=== PATIENT | male | born 1945 | race Two or more races ===

== ENCOUNTER 2020-04-06 20:22 | Inpatient (IN) | payer OTHER ==
[~2020-04-06] VITALS: Ht 167.6 cm; Wt 63.1 kg
[2020-04-07 00:09] LABS: Basophils # (auto) 0 10 ^3/uL (0-0.2); Basophils % (auto) 0.3 % (0.0-2.0); Eosinophils # (auto) 0.3 10 ^3/uL (0-0.8); Eosinophils % (auto) 4.2 % (0.0-7.0); Hemoglobin 9.1 g/dL (13.5-17.5); Lymphocytes # (auto) 3.2 10 ^3/uL (0.4-5.4); Lymphocytes % (auto) 38.7 % (10.0-50.0); Mean Corpuscular Hemoglobin 31.3 pg (28.0-32.0); Mean Corpuscular Volume 89.7 fL (80.0-100.0); Monocytes # (auto) 0.6 10 ^3/uL (0-1.3); Monocytes % (auto) 7.2 % (0.0-12.0); Neutrophils # (auto) 4.1 10 ^3/uL (1.6-8.6); Neutrophils % (auto) 49.6 % (37.0-80.0); Platelet Count (auto) 330 10^3/uL (140-450); Red Cell Distribution Width 13.8 % (11.8-14.3); White Blood Cell 8.3 10^3/uL (4.4-10.8)
[2020-04-07 00:25] LABS: INR 0.98 (0.9-1.15); Partial Thromboplastin Time 23.4 sec (23.0-31.2)
[2020-04-07 00:31] LABS: BUN/Creatinine Ratio 9.3; Calcium 9.5 mg/dL (8.5-10.1); Potassium 3.1 mmol/L (3.5-5.1)
[2020-04-07 00:34] LABS: Bilirubin, Total 0.5 mg/dL (0.2-1.0); Total Protein 8.1 g/dL (6.4-8.2)
[2020-04-07] MEDS ORDERED: ENOXAPARIN SOD 60 MG/0.6 ML SYRINGE SC ONE (03:15)
[2020-04-07] MEDS ORDERED: SODIUM CHLORIDE 0.9% 1,000 ML IV SCH (04:31)
[2020-04-07] MEDS ORDERED: DEXTROSE (50%) 50ML SYRG IV PRN (04:45)
[2020-04-07] MEDS ORDERED: DOCUSATE SOD 100 MG CAP PO PRN (04:45)
[2020-04-07] MEDS ORDERED: HYDROcodone-ACET 5/325MG TAB PO PRN (04:45)
[2020-04-07] MEDS ORDERED: ACETAMINOPHEN 325 MG TAB PO PRN (04:45)
[2020-04-07] MEDS ORDERED: ONDANSETRON HCL 4 MG/2 ML VIAL IV PRN (04:45)
--- NOTE | 2020-04-07 07:31 | NUR ---
MS admit from [facility] admitted to tele/MS after SBAR received. Patient oriented to naa STEVE RN, unit, room, bed, and unit policies regarding patient care and visiting hours. Patient weighed by bed scale and encouraged to call if they need something. Patient Yoruba speaking. Call soria placed within reach, bed in low position. Addendum: 04/07/20 at 0751 by GENOVEVA MARK RN Patient has generalized skin discoloration (large white spots). Left buttocks lesion.
[2020-04-07 08:00] VITALS: BP 128/75
[2020-04-07] MEDS: ACCU-CHEK COMFORT CURVE STRIP VI SCH ×3 (08:00→16:00)
[2020-04-07] MEDS: InsuLIN REG 1unit/0.01ml Soln (100units/ml) SC SCH ×3 (08:00→16:00)
--- NOTE | 2020-04-07 08:00 | NUR ---
Opening Shift Note Assumed care of patient, awake and alertx4. No S/S of distress/SOB or pain. Instructed on POC and to call for assist PRN. Bed at lowest locked position and call light within reach. Will continue to monitor for changes Q1hr and PRN.
[2020-04-07 09:00] VITALS: BP 128/75
[2020-04-07 11:51] LABS: Basophils # (auto) 0 10 ^3/uL (0-0.2); Basophils % (auto) 0.5 % (0.0-2.0); Eosinophils # (auto) 0.2 10 ^3/uL (0-0.8); Eosinophils % (auto) 3.6 % (0.0-7.0); Hematocrit 27.6 % (41.0-53.0); Hemoglobin 9.6 g/dL (13.5-17.5); Lymphocytes # (auto) 2.1 10 ^3/uL (0.4-5.4); Mean Corpuscular Hemoglobin 31.1 pg (28.0-32.0); Mean Corpuscular Hgb Conc. 34.8 g/dL (32.0-36.0); Mean Corpuscular Volume 89.6 fL (80.0-100.0); Monocytes # (auto) 0.4 10 ^3/uL (0-1.3); Monocytes % (auto) 6.1 % (0.0-12.0); Neutrophils # (auto) 3.3 10 ^3/uL (1.6-8.6); Neutrophils % (auto) 54.8 % (37.0-80.0); Platelet Count (auto) 357 10^3/uL (140-450); Red Blood Cells 3.08 10^6/uL (4.5-5.90); Red Cell Distribution Width 13.6 % (11.8-14.3)
[2020-04-07 12:05] LABS: Calcium 9.8 mg/dL (8.5-10.1)
[2020-04-07 12:07] LABS: BUN/Creatinine Ratio 9.8
[2020-04-07 13:00] VITALS: BP 123/76
--- NOTE | 2020-04-07 13:30 | NUR ---
DR. HAM AT BEDSIDE.
[2020-04-07] MEDS: POTASSIUM CHL 20 Meq TABLET PO SCH ×2 (14:45→17:38)
[2020-04-07 15:22] VITALS: BP 123/76
--- NOTE | 2020-04-07 16:00 | NUR ---
called patient's KWAMEK Марина to inform her of discharge. per Daughter Марина, ETA is [phone].
--- NOTE | 2020-04-07 16:49 | NUR ---
MRSA screen MRSA swab collected and sent to lab via [facility] system.
[2020-04-07] MEDS ORDERED: ENOXAPARIN SOD 60 MG/0.6 ML SYRINGE SC SCH (18:00)
--- NOTE | 2020-04-07 18:04 | NUR ---
Discharge instructions given as ordered. Encourage to follow up with PMD as instructed. All questions and concerns addressed. Patient verbalized understanding. Medication reconciliation form completed and copy given to patient. IV removed with catheter intact, pressure dressing applied. Patient ambulated to vehicle via with all personal belongings, accompanied by this nurse a. No distress noted at time of departure.
== END 2020-04-07 18:05 | disposition home or self-care (01) | DRG 299 ==
LOC: ER 20:22 → OVERFLOW 20:23 → WEST WING 04-07 06:59
PROVIDERS: ADMIT Hospitalist; ATTEND Hospitalist
DX: I82.432 Acute embolism and thrombosis of left popliteal vein (principal); N17.0 Acute kidney failure with tubular necrosis; E87.1 Hypo-osmolality and hyponatremia; E11.22 Type 2 diabetes mellitus with diabetic chronic kidney disease; E87.6 Hypokalemia; I12.9 Hypertensive chronic kidney disease with stage 1 through stage 4 chronic kidney disease, or unspecified chronic kidney disease; N18.3 Chronic kidney disease, stage 3 (moderate); D63.8 Anemia in other chronic diseases classified elsewhere; E11.65 Type 2 diabetes mellitus with hyperglycemia; Z86.718 Personal history of other venous thrombosis and embolism
CPT/HCPCS: 36415; 80048; 80053; 82962; 83036; 85025; 85379; 85610; 85730; 87081; 93971; G0378; J1815

== ENCOUNTER 2023-12-03 11:21 | Inpatient (IN) | payer OTHER ==
[2023-12-03] VITALS (8 sets, daily range): BP systolic 103–156; BP diastolic 80–87; PULSE 60–90; RESP 16–18; TEMP 97.3–99; O2SAT 92–97
[~2023-12-03] VITALS: Ht 172.7 cm; Wt 60.2 kg
[2023-12-03 12:10] LABS: Basophils # (auto) 0 10 ^3/uL (0-0.2); Basophils % (auto) 0.2 % (0.0-2.0); Eosinophils # (auto) 0.2 10 ^3/uL (0-0.8); Eosinophils % (auto) 2.1 % (0.0-7.0); Hematocrit 38.4 % (41.0-53.0); Hemoglobin 12.8 g/dL (13.5-17.5); Lymphocytes # (auto) 1.5 10 ^3/uL (0.4-5.4); Lymphocytes % (auto) 20.5 % (10.0-50.0); Mean Corpuscular Hemoglobin 29.1 pg (28.0-32.0); Mean Corpuscular Hgb Conc. 33.3 g/dL (32.0-36.0); Mean Corpuscular Volume 87.4 fL (80.0-100.0); Monocytes # (auto) 0.3 10 ^3/uL (0-1.3); Monocytes % (auto) 3.4 % (0.0-12.0); Neutrophils # (auto) 5.5 10 ^3/uL (1.6-8.6); Neutrophils % (auto) 73.8 % (37.0-80.0); Nucleated Red Blood Cells % 0.1 %; Red Cell Distribution Width 14.2 % (11.8-14.3); White Blood Cell 7.5 10^3/uL (4.4-10.8)
[2023-12-03 12:28] LABS: Alanine Aminotransferase 16 U/L (7-40); Albumin 4.2 g/dL (3.2-4.8); Alkaline Phosphatase 108 U/L (46-116); Anion Gap 8 (5-15); Aspartate Aminotransferase 14 U/L (13-40); BUN/Creatinine Ratio 21.4 (10.0-20.0); Blood Urea Nitrogen 37 mg/dL (9-23); Calcium 10.3 mg/dL (8.5-10.1); Carbon Dioxide 26 mmol/L (20-30); Chloride 99 mmol/L (98-107); Potassium 4.9 mmol/L (3.5-5.1); Sodium 133 mmol/L (136-145)
[2023-12-03 12:29] LABS: Bilirubin, Total 0.6 mg/dL (0.2-1.0); Total Protein 7.3 g/dL (5.7-8.2)
[2023-12-03 12:34] LABS: Glucose 491 mg/dL (74-106)
[2023-12-03] MEDS: SODIUM CHLORIDE 0.9% 1,000 ML IV ONE (12:39)
[2023-12-03] MEDS: InsuLIN REG 1unit/0.01ml Soln (100units/ml) IV ONE (13:19)
[2023-12-03] MEDS ORDERED: DEXTROSE (50%) 50ML SYRG IV PRN (13:45)
[2023-12-03] MEDS: SODIUM CHLORIDE 0.9% 1,000 ML IV SCH (13:54)
[2023-12-03 14:19] LABS: Triglycerides 155 mg/dL (< 150)
[2023-12-03 14:20] LABS: LDL Cholesterol 79 mg/dL (< 100)
[2023-12-03 14:21] LABS: Cholesterol 144 mg/dL (< 200); HDL Cholesterol 39 mg/dL (40-59)
[2023-12-03] MEDS ORDERED: LISI10TA34 PO (14:45)
[2023-12-03] MEDS ORDERED: MONT-8 PO (14:45)
[2023-12-03] MEDS ORDERED: ALBU108A5 INH (14:45)
[2023-12-03] MEDS ORDERED: SIMV20TA20 PO (14:45)
[2023-12-03] MEDS ORDERED: MEMA1TAB5 PO (14:45)
[2023-12-03] MEDS ORDERED: METF-370 PO (14:45)
[2023-12-03] MEDS ORDERED: METF-372 PO (14:45)
[2023-12-03] MEDS ORDERED: OMEP1CAP70 PO (14:45)
[2023-12-03] MEDS ORDERED: FLUT50SP NAS (14:45)
[2023-12-03] MEDS ORDERED: ALBU0.084 NEB (14:45)
[2023-12-03] MEDS: cefTRIAXone 1GM/50ML D5W 50 ML IV ONE (15:13)
[2023-12-03 16:14] LABS: Urine Bacteria FEW /hpf (None Seen); Urine Blood Negative /uL (Negative); Urine Clarity Clear (Clear); Urine Color Light-Yellow (Yellow); Urine Protein, UAD Negative (Negative); Urine Specific Gravity 1.027 (1.001-1.035); Urine Urobilinogen Normal (Negative); Urine WBC 16 /hpf (0 - 3); Urine pH 5.5 (5.0-9.0)
[2023-12-03 16:19] LABS: Creatinine, Urine 49.54 mg/dL (30.0-125.0)
[2023-12-03] MEDS: ACCU-CHEK COMFORT CURVE STRIP VI SCH (16:53)
[2023-12-03] MEDS: InsuLIN REG 1unit/0.01ml Soln (100units/ml) SC SCH ×2 (16:54→21:09)
[2023-12-03] MEDS: ACETAMINOPHEN 325 MG TAB PO PRN (19:29)
[2023-12-03] MEDS: ATORVASTATIN 20 MG TAB PO SCH (21:02)
[2023-12-04] VITALS (11 sets, daily range): BP systolic 98–130; BP diastolic 67–82; PULSE 60–88; RESP 14–19; TEMP 97–98.1; O2SAT 92–100
[2023-12-04 05:31] LABS: Basophils # (auto) 0 10 ^3/uL (0-0.2); Basophils % (auto) 0.1 % (0.0-2.0); Eosinophils # (auto) 0.2 10 ^3/uL (0-0.8); Eosinophils % (auto) 2.1 % (0.0-7.0); Hematocrit 37.9 % (41.0-53.0); Hemoglobin 12.8 g/dL (13.5-17.5); Lymphocytes # (auto) 1.9 10 ^3/uL (0.4-5.4); Lymphocytes % (auto) 17.8 % (10.0-50.0); Mean Corpuscular Hgb Conc. 33.7 g/dL (32.0-36.0); Mean Corpuscular Volume 86.1 fL (80.0-100.0); Monocytes # (auto) 0.5 10 ^3/uL (0-1.3); Monocytes % (auto) 4.8 % (0.0-12.0); Neutrophils # (auto) 7.8 10 ^3/uL (1.6-8.6); Neutrophils % (auto) 75.2 % (37.0-80.0); Red Blood Cells 4.41 10^6/uL (4.5-5.90); Red Cell Distribution Width 14.1 % (11.8-14.3); White Blood Cell 10.4 10^3/uL (4.4-10.8)
[2023-12-04 05:47] LABS: Alanine Aminotransferase 15 U/L (7-40); Alkaline Phosphatase 86 U/L (46-116); Anion Gap 10 (5-15); Blood Urea Nitrogen 31 mg/dL (9-23); Carbon Dioxide 23 mmol/L (20-30); Chloride 107 mmol/L (98-107); Potassium 3.9 mmol/L (3.5-5.1); Sodium 140 mmol/L (136-145)
[2023-12-04 05:49] LABS: Albumin 4.1 g/dL (3.2-4.8); Aspartate Aminotransferase 12 U/L (13-40); Bilirubin, Total 0.5 mg/dL (0.2-1.0); Total Protein 7.2 g/dL (5.7-8.2)
[2023-12-04 06:06] LABS: Glucose 116 mg/dL (74-106)
[2023-12-04] MEDS ORDERED: PATIENTS OWN MEDICATION (Omeprazole (Omeprazole Dr) 1 CAP) PO SCH (10:00)
[2023-12-04] MEDS ORDERED: PATIENTS OWN MEDICATION (Memantine Hydrochloride (Memantine HCl) 1 TAB) PO SCH (10:00)
[2023-12-04] MEDS ORDERED: PATIENTS OWN MEDICATION (Lisinopril 1 TAB) PO SCH (10:00)
[2023-12-04] MEDS: LISINOPRIL 5 MG TAB PO SCH (10:06)
[2023-12-04] MEDS: ENOXAPARIN SOD 40 MG/0.4 ML SYRINGE SC SCH (10:06)
[2023-12-04] MEDS: cefTRIAXone 1GM/50ML D5W 50 ML IV SCH (10:06)
[2023-12-04] MEDS: MONTELUKAST SODIUM 10 MG TAB PO SCH (10:07)
[2023-12-04] MEDS: MEMANTINE HCL 5 MG TAB PO SCH (10:07)
[2023-12-04] MEDS: PANTOPRAZOLE 40 MG TAB PO SCH (10:07)
[2023-12-04] MEDS: ALBUTEROL SULF 2.5 MG/0.5ML(0.5%) NEB SOLN NEB PRN (13:04)
[2023-12-05] VITALS (10 sets, daily range): BP systolic 100–130; BP diastolic 57–84; PULSE 62–77; RESP 16–18; TEMP 97.2–98; O2SAT 92–97
[2023-12-06] VITALS (10 sets, daily range): BP systolic 109–135; BP diastolic 61–82; PULSE 68–91; RESP 17–18; TEMP 97.4–98; O2SAT 92–98
[2023-12-06] MEDS: LACTULOSE 20Gm/30ML SOLN PO ONE (15:27)
[2023-12-06] MEDS: DOCUSATE SOD 100 MG CAP PO ONE (15:28)
[2023-12-06] MEDS: LACTULOSE 20Gm/30ML SOLN PO SCH (22:06)
[2023-12-06] MEDS: DOCUSATE SOD 100 MG CAP PO SCH (22:07)
[2023-12-07] VITALS (11 sets, daily range): BP systolic 111–166; BP diastolic 51–91; PULSE 58–106; RESP 16–18; TEMP 97.8–98.2; O2SAT 95–97
[2023-12-07] MEDS: HYDROcodone-ACET 10/325MG TAB PO PRN (16:59)
[2023-12-08] VITALS (10 sets, daily range): BP systolic 86–169; BP diastolic 54–99; PULSE 80–110; RESP 16–22; TEMP 97.8–98.3; O2SAT 90–99
[2023-12-08] MEDS: NIFEdipine ER 30 MG TAB PO SCH (08:42)
[2023-12-08] MEDS ORDERED: hydrALAZINE HCL 20 MG/ML VL IV PRN (12:00)
[2023-12-08] MEDS ORDERED: hydrALAZINE HCL 20 MG/ML VL IV SCH (12:00)
[2023-12-08] MEDS: OXYBUTYNIN CHL 5 MG TAB PO ONE (13:26)
[2023-12-08 15:41] LABS: Chloride 107 mmol/L (98-107); Potassium 4.2 mmol/L (3.5-5.1); Sodium 137 mmol/L (136-145)
[2023-12-08 15:42] LABS: Anion Gap 7 (5-15); Calcium 9.9 mg/dL (8.5-10.1); Carbon Dioxide 23 mmol/L (20-30)
[2023-12-08 15:47] LABS: BUN/Creatinine Ratio 15.5 (10.0-20.0); Blood Urea Nitrogen 17 mg/dL (9-23); Glucose 83 mg/dL (74-106)
[2023-12-08 15:55] LABS: INR 1.03 (0.9-1.15); Partial Thromboplastin Time 28.1 SEC (24.5-34.5); Prothrombin Time 10.9 sec (9.3-11.8)
[2023-12-08] MEDS: SODIUM CHLORIDE 0.9% 500 ML IV ONE (17:27)
[2023-12-08] MEDS: OXYBUTYNIN CHL 5 MG TAB PO SCH (21:38)
[2023-12-09] VITALS (15 sets, daily range): BP systolic 93–147; BP diastolic 55–93; PULSE 61–123; RESP 16–24; TEMP 98.2–99.2; O2SAT 91–98
[2023-12-09] MEDS ORDERED: SODIUM CHLORIDE LOCK 10 ML ONE (13:06)
[2023-12-09] MEDS ORDERED: MEPERIDINE HCL (50 MG/ML) 1 ML VIAL ONE (13:06)
[2023-12-09] MEDS ORDERED: LIDOCAINE 1% INJ PF 5ML AMP ONE (13:06)
[2023-12-09] MEDS ORDERED: ETOMIDATE (2MG/ML) 20ML VIAL IV ONE (13:06)
[2023-12-09] MEDS ORDERED: MIDAZOLAM HCL 2MG/2ML 2ml VIAL (1mg/ml) ONE ×2 (13:06→14:15)
[2023-12-09] MEDS ORDERED: KETAMINE 50mg/ML 1ml syringe ONE (13:06)
[2023-12-09] MEDS ORDERED: fentaNYL CITRATE 100 MCG/2 ML VL ONE (13:06)
[2023-12-09] MEDS ORDERED: LIDOCAINE HCL 2% TOP JELLY 5ML TOP ONE (13:06)
[2023-12-09] MEDS ORDERED: PROPOFOL 10 MG/ML 20 ML IV ONE (13:15)
[2023-12-09] MEDS ORDERED: HYDROmorphone HCL 2 MG/ML VL/or syr IV PRN ×2 (13:30)
[2023-12-09] MEDS ORDERED: MORPHINE SULFATE INJ 2 MG/ml SYRG IV PRN (13:30)
[2023-12-09] MEDS ORDERED: ALBUTEROL SULF 2.5 MG/0.5ML(0.5%) NEB SOLN NEB PRN (14:00)
[2023-12-09] MEDS: ALBUTEROL SULF 2.5 MG/0.5ML(0.5%) NEB SOLN NEB SCH (18:56)
[2023-12-09] MEDS: MORPHINE SULFATE INJ 2 MG/ml SYRG IV ONE (20:26)
[2023-12-09] MEDS: FUROSEMIDE 20 MG/2 ML VIAL IV ONE (20:32)
[2023-12-10] VITALS (16 sets, daily range): BP systolic 100–145; BP diastolic 53–99; PULSE 16–113; RESP 15–20; TEMP 97.7–99.4; O2SAT 92–100
[2023-12-11] VITALS (16 sets, daily range): BP systolic 100–121; BP diastolic 51–69; PULSE 78–101; RESP 16–22; TEMP 97.9–98.9; O2SAT 90–99
[2023-12-11] MEDS ORDERED: LISI-275 PO (13:48)
[2023-12-11] MEDS ORDERED: NAPR-746 PO (13:48)
[2023-12-11] MEDS ORDERED: NIFE1TAB31 PO (13:48)
[2023-12-11] MEDS ORDERED: CEPH250C PO (13:48)
[2023-12-11] MEDS ORDERED: DOCU-265 PO (13:48)
[2023-12-12] VITALS (17 sets, daily range): BP systolic 108–147; BP diastolic 59–90; PULSE 54–104; RESP 16–20; TEMP 97.9–99.1; O2SAT 90–98
[2023-12-12] MEDS: BUPIVACAINE 0.5% P/F INJ 10 ML VIAL ONE (07:32)
[2023-12-12] MEDS: ceFAZolin 2 GM/D5W50ml 50 ML IV ONE (07:32)
[2023-12-12] MEDS: METOCLOPRAMIDE HCL 5MG/ml INJ 2ml VIAL IV ONE (07:32)
[2023-12-12] MEDS: ACCU-CHEK COMFORT CURVE STRIP VI ONE (07:32)
[2023-12-12] MEDS: LIDOCAINE 1% HCL (LOCAL ANESTH.) INJ 20ML MDV ONE (07:33)
[2023-12-12] MEDS: FUROSEMIDE 100 MG/10ML VIAL IV ONE (16:33)
[2023-12-12 19:18] LABS: Urine Bacteria MOD /hpf (None Seen); Urine Blood 3+ /uL (Negative); Urine Budding Yeast LOADED /hpf (None Seen); Urine Clarity Ex.Turbid (Clear); Urine Color Colorless (Yellow); Urine Mucus FEW (None Seen); Urine Protein, UAD 2+ (Negative); Urine Specific Gravity 1.015 (1.001-1.035); Urine Urobilinogen Normal (Negative); Urine WBC 1285 /hpf (0 - 3); Urine WBC Clumps PRESENT /hpf (None Seen)
[2023-12-12] MEDS: CEPHALEXIN 250 MG CAP PO SCH (21:57)
[2023-12-13] VITALS (15 sets, daily range): BP systolic 102–116; BP diastolic 58–69; PULSE 85–107; RESP 16–20; TEMP 98.4–99.3; O2SAT 91–99
[2023-12-13] MEDS: FLUCONAZOLE 100 MG TAB PO ONE (12:55)
[2023-12-13 13:35] LABS: Chloride 102 mmol/L (98-107); Potassium 3.7 mmol/L (3.5-5.1); Sodium 135 mmol/L (136-145)
[2023-12-13 13:36] LABS: Anion Gap 10 (5-15); Calcium 9.6 mg/dL (8.5-10.1); Carbon Dioxide 23 mmol/L (20-30)
[2023-12-13 13:41] LABS: BUN/Creatinine Ratio 12.5 (10.0-20.0); Blood Urea Nitrogen 14 mg/dL (9-23)
[2023-12-13 13:43] LABS: Basophils # (auto) 0.1 10 ^3/uL (0-0.2); Basophils % (auto) 0.6 % (0.0-2.0); Eosinophils # (auto) 0.1 10 ^3/uL (0-0.8); Eosinophils % (auto) 0.9 % (0.0-7.0); Hematocrit 31.1 % (41.0-53.0); Hemoglobin 10.5 g/dL (13.5-17.5); Lymphocytes # (auto) 1.5 10 ^3/uL (0.4-5.4); Lymphocytes % (auto) 15.7 % (10.0-50.0); Mean Corpuscular Hemoglobin 28.7 pg (28.0-32.0); Mean Corpuscular Hgb Conc. 33.8 g/dL (32.0-36.0); Monocytes # (auto) 0.5 10 ^3/uL (0-1.3); Monocytes % (auto) 4.9 % (0.0-12.0); Neutrophils # (auto) 7.4 10 ^3/uL (1.6-8.6); Neutrophils % (auto) 77.9 % (37.0-80.0); Red Blood Cells 3.66 10^6/uL (4.5-5.90); Red Cell Distribution Width 13.7 % (11.8-14.3); White Blood Cell 9.5 10^3/uL (4.4-10.8)
[2023-12-13 14:07] LABS: Glucose 307 mg/dL (74-106)
[2023-12-13] MEDS: NYSTATIN TOPICAL POWDER 15GM TOP SCH (21:50)
[2023-12-14] VITALS (14 sets, daily range): BP systolic 112–137; BP diastolic 53–79; PULSE 68–95; RESP 14–18; TEMP 98–98.7; O2SAT 94–99
[2023-12-14] MEDS ORDERED: cefTRIAXone 1GM/50ML D5W 50 ML IV SCH (09:00)
== END 2023-12-14 19:00 | disposition home health service (06) | DRG 853 ==
LOC: ER 11:21 → EDBD 11:21 → OVERFLOW 13:38 → EAST 16:00
PROVIDERS: ADMIT Nurse Practitioner Family; ATTEND Internal Medicine
PROC: 0YQ50ZZ Repair Right Inguinal Region, Open Approach (ICD-10-PCS; principal; 2023-12-09 13:48)
DX: A41.9 Sepsis, unspecified organism (principal); N17.0 Acute kidney failure with tubular necrosis; J45.901 Unspecified asthma with (acute) exacerbation; N39.0 Urinary tract infection, site not specified; E11.65 Type 2 diabetes mellitus with hyperglycemia; I10 Essential (primary) hypertension; F03.90 Unspecified dementia, unspecified severity, without behavioral disturbance, psychotic disturbance, mood disturbance, and anxiety; K40.20 Bilateral inguinal hernia, without obstruction or gangrene, not specified as recurrent; N43.3 Hydrocele, unspecified; N49.2 Inflammatory disorders of scrotum; E78.00 Pure hypercholesterolemia, unspecified; N47.6 Balanoposthitis; R33.9 Retention of urine, unspecified; Z91.013 Allergy to seafood; Z92.29 Personal history of other drug therapy
CPT/HCPCS: 36415; 71045; 74176; 76870; 80048; 80053; 80061; 81001; 82570; 82607; 82962; 83036; 83930; 84156; 84300; 84443; 84484; 85025; 85610; 85730; 86850; 86900; 86901; 87086; 87088; 88302; 93005; 93306; 94640; 97110; 97116; 97163; 97530; G0378; J1815; J2001; J2250; J2704; J3490

== ENCOUNTER 2024-01-20 16:43 | Inpatient (IN) | payer OTHER ==
[~2024-01-20] VITALS: Ht 165.1 cm; Wt 70.0 kg
[~2024-01-20 16:43] MED LIST: ALBU0.084 NEB; ALBU108A5 INH; CEPH250C PO; DOCU-265 PO; FLUT50SP NAS; LISI-275 PO; LISI10TA34 PO; MEMA1TAB5 PO; METF-372 PO; MONT-8 PO; NAPR-746 PO; NIFE1TAB31 PO; OMEP1CAP70 PO; SIMV20TA20 PO
[2024-01-20 17:38] VITALS: PULSE 104; RESP 19; O2SAT 97
[2024-01-20] MEDS: methylPREDNISolone SOD SUCC 125 MG/2 ML VL IV ONE (19:57)
[2024-01-20] MEDS: SODIUM CHLORIDE 0.9% 1,000 ML IV ONE (19:57)
[2024-01-20 20:00] VITALS: PULSE 99; RESP 18; O2SAT 96
[2024-01-20] MEDS: ALBUTEROL SULF 2.5 MG/0.5ML(0.5%) NEB SOLN NEB ONE (20:00)
[2024-01-20] MEDS: IPRATROPIUM BROM 0.5 MG/2.5ML INH SOL NEB ONE (20:00)
[2024-01-20 20:27] LABS: Basophils # (auto) 0 10 ^3/uL (0-0.2); Basophils % (auto) 0.2 % (0.0-2.0); Eosinophils # (auto) 0.6 10 ^3/uL (0-0.8); Eosinophils % (auto) 4.7 % (0.0-7.0); Hematocrit 32.2 % (41.0-53.0); Hemoglobin 10.7 g/dL (13.5-17.5); Lymphocytes # (auto) 3.5 10 ^3/uL (0.4-5.4); Lymphocytes % (auto) 28.6 % (10.0-50.0); Mean Corpuscular Hemoglobin 27.6 pg (28.0-32.0); Mean Corpuscular Hgb Conc. 33.3 g/dL (32.0-36.0); Mean Corpuscular Volume 82.8 fL (80.0-100.0); Monocytes # (auto) 0.6 10 ^3/uL (0-1.3); Monocytes % (auto) 5.2 % (0.0-12.0); Neutrophils # (auto) 7.5 10 ^3/uL (1.6-8.6); Neutrophils % (auto) 61.3 % (37.0-80.0); Red Blood Cells 3.89 10^6/uL (4.5-5.90); Red Cell Distribution Width 15.9 % (11.8-14.3); White Blood Cell 12.2 10^3/uL (4.4-10.8)
[2024-01-20 20:58] LABS: Alanine Aminotransferase 12 U/L (7-40); Albumin 4.4 g/dL (3.2-4.8); Alkaline Phosphatase 83 U/L (46-116); Anion Gap 8 (5-15); Aspartate Aminotransferase 8 U/L (13-40); BUN/Creatinine Ratio 14.8 (10.0-20.0); Bilirubin, Total 0.3 mg/dL (0.2-1.0); Blood Urea Nitrogen 17 mg/dL (9-23); Carbon Dioxide 23 mmol/L (20-30); Chloride 103 mmol/L (98-107); Glucose 205 mg/dL (74-106); Potassium 4.3 mmol/L (3.5-5.1); Sodium 134 mmol/L (136-145)
[2024-01-20 20:59] LABS: Total Protein 7.7 g/dL (5.7-8.2)
[2024-01-20 23:23] LABS: Base Excess -4.6 mmol/L (-2.0-2.0)
[2024-01-20] MEDS ORDERED: MORPHINE SULFATE INJ 2 MG/ml SYRG IV PRN (23:45)
[2024-01-20] MEDS ORDERED: DEXTROSE (50%) 50ML SYRG IV PRN (23:45)
[2024-01-20] MEDS ORDERED: IPRATROPIUM BROM 0.5 MG/2.5ML INH SOL NEB PRN (23:45)
[2024-01-20] MEDS ORDERED: ALBUTEROL SULF 2.5 MG/0.5ML(0.5%) NEB SOLN NEB PRN (23:45)
[2024-01-20] MEDS ORDERED: NITROGLYCERIN 0.4 MG SL TAB SL PRN (23:45)
[2024-01-20] MEDS ORDERED: ONDANSETRON HCL 4 MG/2 ML VIAL IV PRN (23:45)
[2024-01-21] VITALS (15 sets, daily range): BP systolic 100–143; BP diastolic 49–82; PULSE 82–96; RESP 15–20; TEMP 97.6–98.6; O2SAT 95–99
[2024-01-21 00:58] LABS: Urine Bacteria None Seen /hpf (None Seen)
[2024-01-21 01:16] LABS: Urine Blood TRACE /uL (Negative); Urine Clarity Clear (Clear); Urine Color Colorless (Yellow); Urine Mucus FEW (None Seen); Urine Protein, UAD TRACE (Negative); Urine Specific Gravity 1.011 (1.001-1.035); Urine Urobilinogen Normal (Negative); Urine WBC 4 /hpf (0 - 3)
[2024-01-21] MEDS: IPRATROPIUM BROM 0.5 MG/2.5ML INH SOL NEB ONE (02:43)
[2024-01-21] MEDS: ALBUTEROL SULF 2.5 MG/0.5ML(0.5%) NEB SOLN NEB ONE (02:43)
[2024-01-21 04:50] LABS: Basophils # (auto) 0 10 ^3/uL (0-0.2); Basophils % (auto) 0.2 % (0.0-2.0); Eosinophils # (auto) 0 10 ^3/uL (0-0.8); Eosinophils % (auto) 0.1 % (0.0-7.0); Hematocrit 30.2 % (41.0-53.0); Hemoglobin 10.2 g/dL (13.5-17.5); Lymphocytes # (auto) 0.5 10 ^3/uL (0.4-5.4); Lymphocytes % (auto) 11.7 % (10.0-50.0); Mean Corpuscular Hemoglobin 28.3 pg (28.0-32.0); Mean Corpuscular Hgb Conc. 33.9 g/dL (32.0-36.0); Mean Corpuscular Volume 83.5 fL (80.0-100.0); Monocytes # (auto) 0 10 ^3/uL (0-1.3); Monocytes % (auto) 0.7 % (0.0-12.0); Neutrophils % (auto) 87.3 % (37.0-80.0); Red Blood Cells 3.62 10^6/uL (4.5-5.90); Red Cell Distribution Width 15.7 % (11.8-14.3); White Blood Cell 4.6 10^3/uL (4.4-10.8)
[2024-01-21 04:59] LABS: Chloride 103 mmol/L (98-107); Potassium 4.2 mmol/L (3.5-5.1); Sodium 133 mmol/L (136-145)
[2024-01-21 05:00] LABS: Anion Gap 11 (5-15); Calcium 9.9 mg/dL (8.7-10.4); Carbon Dioxide 19 mmol/L (20-30)
[2024-01-21 05:05] LABS: BUN/Creatinine Ratio 17.4 (10.0-20.0); Blood Urea Nitrogen 19 mg/dL (9-23)
[2024-01-21 05:14] LABS: Glucose 349 mg/dL (74-106)
[2024-01-21] MEDS: ACCU-CHEK COMFORT CURVE STRIP VI SCH ×2 (06:28→11:30)
[2024-01-21] MEDS: InsuLIN REG 1unit/0.01ml Soln (100units/ml) SC SCH ×3 (06:29→22:53)
[2024-01-21] MEDS: LISINOPRIL 5 MG TAB PO SCH (10:00)
[2024-01-21] MEDS: NIFEdipine ER 30 MG TAB PO SCH (10:00)
[2024-01-21] MEDS ORDERED: DEXTROSE (50%) 50ML SYRG IV PRN (10:15)
[2024-01-21] MEDS: IOHEXOL 350 MG/ML 100ML IJ ONE (10:37)
[2024-01-21] MEDS: diphenhdrAMINE HCL 50 MG/1 ML VL ONE (10:57)
[2024-01-21] MEDS: MAGNESIUM SULFATE 1GM/100ML 100 ML IV SCH (11:00)
[2024-01-21 11:34] LABS: Magnesium 1.7 mg/dL (1.6-2.6)
[2024-01-21] MEDS ORDERED: IPRATROPIUM BROM 0.5 MG/2.5ML INH SOL NEB SCH (12:00)
[2024-01-21] MEDS: methylPREDNISolone SOD SUCC 40 MG/ML VL IV SCH (12:46)
[2024-01-21] MEDS: MEMANTINE HCL 5 MG TAB PO SCH (12:49)
[2024-01-21] MEDS: AZITHROMYCIN 500MG/ 250ML 250 ML IV SCH ×2 (12:51→22:52)
[2024-01-21] MEDS: INSULIN LANTUS (GLARGINE) 1 /0.01ml (100units/ml) SC ONE (12:57)
[2024-01-21] MEDS: LEVALBUTEROL HCL 1.25 MG/3 ML NEB NEB SCH (13:43)
[2024-01-21] MEDS: IPRATROPIUM BROM 0.5 MG/2.5ML INH SOL NEB SCH (13:44)
[2024-01-21] MEDS ORDERED: NAP500T PO (16:40)
[2024-01-21] MEDS: ENOXAPARIN SOD 60 MG/0.6 ML SYRINGE SC ONE (20:05)
[2024-01-21] MEDS: MAGNESIUM SULFATE 1GM/100ML 100 ML IV ONE (20:35)
[2024-01-21] MEDS: ATORVASTATIN 20 MG TAB PO SCH (22:52)
[2024-01-22] VITALS (22 sets, daily range): BP systolic 95–142; BP diastolic 41–74; PULSE 77–98; RESP 14–19; TEMP 97.5–98.3; O2SAT 92–100
[2024-01-22 02:06] LABS: COVID19 ANTIGEN SOFIA FIA NEGATIVE (NEGATIVE); Rapid Influenza A Negative (Negative); Rapid Influenza B Negative (Negative)
[2024-01-22 06:14] LABS: Basophils # (auto) 0 10 ^3/uL (0-0.2); Basophils % (auto) 0.1 % (0.0-2.0); Eosinophils # (auto) 0 10 ^3/uL (0-0.8); Hematocrit 33.2 % (41.0-53.0); Lymphocytes # (auto) 0.7 10 ^3/uL (0.4-5.4); Lymphocytes % (auto) 6.8 % (10.0-50.0); Mean Corpuscular Hemoglobin 28.1 pg (28.0-32.0); Mean Corpuscular Hgb Conc. 33.2 g/dL (32.0-36.0); Mean Corpuscular Volume 84.5 fL (80.0-100.0); Monocytes # (auto) 0.1 10 ^3/uL (0-1.3); Monocytes % (auto) 0.5 % (0.0-12.0); Neutrophils % (auto) 92.6 % (37.0-80.0); Red Blood Cells 3.93 10^6/uL (4.5-5.90); Red Cell Distribution Width 15.9 % (11.8-14.3); White Blood Cell 10.8 10^3/uL (4.4-10.8)
[2024-01-22] MEDS: INSULIN LANTUS (GLARGINE) 1 /0.01ml (100units/ml) SC SCH (06:32)
[2024-01-22] MEDS: ENOXAPARIN SOD 60 MG/0.6 ML SYRINGE SC SCH (06:32)
[2024-01-22 06:47] LABS: Albumin 4.1 g/dL (3.2-4.8); Alkaline Phosphatase 72 U/L (46-116); Anion Gap 8 (5-15); BUN/Creatinine Ratio 23.2 (10.0-20.0); Blood Urea Nitrogen 26 mg/dL (9-23); Calcium 10.5 mg/dL (8.7-10.4); Carbon Dioxide 21 mmol/L (20-30); Chloride 106 mmol/L (98-107); Potassium 4.3 mmol/L (3.5-5.1); Sodium 135 mmol/L (136-145)
[2024-01-22 06:48] LABS: Bilirubin, Total 0.3 mg/dL (0.2-1.0); Total Protein 7.7 g/dL (5.7-8.2)
[2024-01-22 06:53] LABS: Alanine Aminotransferase < 9 U/L (7-40); Glucose 128 mg/dL (74-106)
[2024-01-22 07:09] LABS: Aspartate Aminotransferase 8 U/L (13-40)
[2024-01-22] MEDS ORDERED: DEXTROSE (50%) 50ML SYRG IV PRN (15:45)
[2024-01-22] MEDS: ACCU-CHEK COMFORT CURVE STRIP VI SCH (19:25)
[2024-01-22] MEDS: InsuLIN REG 1unit/0.01ml Soln (100units/ml) SC SCH ×2 (19:40→21:53)
[2024-01-22] MEDS: ACETAMINOPHEN 325 MG TAB PO PRN (21:52)
[2024-01-22] MEDS: MUPIROCIN 2% OINT 15gm or 22gm FOR MRSA NARES EACHNOSTRI SCH (22:07)
[2024-01-23] VITALS (13 sets, daily range): BP systolic 84–108; BP diastolic 47–65; PULSE 54–98; RESP 16–18; TEMP 97.9–98.4; O2SAT 91–98
[2024-01-23 06:49] LABS: Basophils # (auto) 0 10 ^3/uL (0-0.2); Eosinophils # (auto) 0 10 ^3/uL (0-0.8); Hematocrit 32.3 % (41.0-53.0); Hemoglobin 10.5 g/dL (13.5-17.5); Lymphocytes % (auto) 9.7 % (10.0-50.0); Mean Corpuscular Hemoglobin 27.2 pg (28.0-32.0); Mean Corpuscular Hgb Conc. 32.6 g/dL (32.0-36.0); Mean Corpuscular Volume 83.2 fL (80.0-100.0); Monocytes # (auto) 0.1 10 ^3/uL (0-1.3); Monocytes % (auto) 0.5 % (0.0-12.0); Neutrophils # (auto) 9.3 10 ^3/uL (1.6-8.6); Neutrophils % (auto) 89.8 % (37.0-80.0); Red Blood Cells 3.88 10^6/uL (4.5-5.90); Red Cell Distribution Width 15.6 % (11.8-14.3); White Blood Cell 10.3 10^3/uL (4.4-10.8)
[2024-01-23 07:45] LABS: Alkaline Phosphatase 73 U/L (46-116); Anion Gap 9 (5-15); Aspartate Aminotransferase < 8 U/L (13-40); BUN/Creatinine Ratio 26.7 (10.0-20.0); Blood Urea Nitrogen 32 mg/dL (9-23); Calcium 9.9 mg/dL (8.5-10.1); Carbon Dioxide 22 mmol/L (20-30); Chloride 101 mmol/L (98-107); Magnesium 1.7 mg/dL (1.6-2.6); Potassium 4.4 mmol/L (3.5-5.1); Sodium 132 mmol/L (136-145)
[2024-01-23 07:46] LABS: Bilirubin, Total 0.3 mg/dL (0.2-1.0); Total Protein 7.2 g/dL (5.7-8.2)
[2024-01-23 08:36] LABS: Glucose 266 mg/dL (74-106)
[2024-01-23 08:37] LABS: Alanine Aminotransferase < 9 U/L (7-40)
[2024-01-23] MEDS ORDERED: APIX5TAB PO (11:42)
[2024-01-23] MEDS ORDERED: MUPI2OIN2 EACHNOSTRI (11:42)
[2024-01-23] MEDS ORDERED: AZIT-185 PO (11:42)
[2024-01-23] MEDS ORDERED: [UNRECOGNIZED DRUG - CODE] IN (11:42)
[2024-01-23] MEDS ORDERED: PRED20TA2 PO (11:42)
== END 2024-01-23 16:50 | disposition home or self-care (01) | DRG 189 ==
LOC: EDBD 16:43 → EDUNIT# 16:43 → ER 16:51 → TELE 23:50 → TELE-EAST 01-21 04:00
PROVIDERS: ADMIT Internal Medicine Pulmonary Disease; ATTEND Emergency Medicine
DX: J96.21 Acute and chronic respiratory failure with hypoxia (principal); I82.432 Acute embolism and thrombosis of left popliteal vein; E87.3 Alkalosis; J44.1 Chronic obstructive pulmonary disease with (acute) exacerbation; E11.9 Type 2 diabetes mellitus without complications; I10 Essential (primary) hypertension; E78.5 Hyperlipidemia, unspecified; J43.9 Emphysema, unspecified; D64.9 Anemia, unspecified; Z20.822 Contact with and (suspected) exposure to COVID-19; E83.52 Hypercalcemia
CPT/HCPCS: 36415; 36600; 71045; 71275; 80048; 80053; 80061; 81001; 82805; 82962; 83036; 83735; 83880; 84443; 84484; 85025; 85379; 87081; 87426; 87804; 93970; 94640; 97110; 97116; 97163; 97530; G0378; J1815

== ENCOUNTER 2024-02-25 23:01 | Inpatient (IN) | payer OTHER ==
[~2024-02-25] VITALS: Ht 162.6 cm; Wt 55.9 kg
[~2024-02-25 23:01] MED LIST changes: +APIX5TAB PO; +AZIT-185 PO; -CEPH250C PO; -DOCU-265 PO; -LISI10TA34 PO; +MUPI2OIN2 EACHNOSTRI; -NAPR-746 PO; +PRED20TA2 PO; +[UNRECOGNIZED DRUG - CODE] IN
[2024-02-25] MEDS: ROCURONIUM 10MG/ML 10ML VIAL IV ONE ×2 (23:06→23:08)
[2024-02-25] MEDS: ETOMIDATE (2MG/ML) 20ML VIAL IV ONE ×2 (23:06→23:08)
[2024-02-25] MEDS: PROPOFOL 100 ML IV ONE (23:13)
[2024-02-25] MEDS: PROPOFOL 100 ML IV SCH (23:20)
[2024-02-25] MEDS: PROPOFOL 10 MG/ML 20 ML IV ONE (23:30)
[2024-02-25] MEDS: ALBUTEROL SULF 2.5 MG/0.5ML(0.5%) NEB SOLN ONE (23:40)
[2024-02-25 23:45] LABS: Urine Bacteria None Seen /hpf (None Seen)
[2024-02-25 23:51] LABS: Hematocrit 34.6 % (41.0-53.0); Hemoglobin 11.4 g/dL (13.5-17.5); Mean Corpuscular Hemoglobin 27.8 pg (28.0-32.0); Mean Corpuscular Volume 84.2 fL (80.0-100.0); Red Blood Cells 4.11 10^6/uL (4.5-5.90); Red Cell Distribution Width 15.3 % (11.8-14.3); White Blood Cell 11.7 10^3/uL (4.4-10.8)
[2024-02-25 23:54] LABS: Basophils % (manual) 0 (0.0-2.0); Blast Cells 0; Metamyelocytes % 0; Myelocytes % 0; Promyelocytes % 0; Reactive Lymphocytes 0
[2024-02-26] VITALS (58 sets, daily range): BP systolic 84–171; BP diastolic 49–88; PULSE 71–154; RESP 13–18; TEMP 95.6–97.9; O2SAT 90–100
[2024-02-26 00:04] LABS: Base Excess -5.6 mmol/L (-2.0-2.0)
[2024-02-26 00:06] LABS: Alanine Aminotransferase 21 U/L (7-40); Albumin 4.7 g/dL (3.2-4.8); Alkaline Phosphatase 83 U/L (46-116); Anion Gap 15 (5-15); Aspartate Aminotransferase 26 U/L (13-40); BUN/Creatinine Ratio 11.7 (10.0-20.0); Blood Urea Nitrogen 17 mg/dL (9-23); Calcium 9.9 mg/dL (8.7-10.4); Carbon Dioxide 19 mmol/L (20-30); Chloride 98 mmol/L (98-107); Glucose 325 mg/dL (74-106); Potassium 4.1 mmol/L (3.5-5.1); Sodium 132 mmol/L (136-145)
[2024-02-26 00:07] LABS: Bilirubin, Total 0.5 mg/dL (0.2-1.0)
[2024-02-26 00:11] LABS: Urine Blood 1+ /uL (Negative); Urine Clarity Turbid (Clear); Urine Color Light-Yellow (Yellow); Urine Hyaline Cast FEW /lpf (0 - 2); Urine Protein, UAD 1+ (Negative); Urine Urobilinogen Normal (Negative); Urine WBC 10 /hpf (0 - 3)
[2024-02-26] MEDS: SODIUM CHLORIDE 0.9% 1,000 ML IV ONE (00:12)
[2024-02-26 00:17] LABS: Lactic Acid w/Reflex 5.5 mmol/L (0.4-2.0)
[2024-02-26] MEDS: NOREPINEPHRINE 8 MG/250ML KIT 250 ML IV SCH (00:20)
[2024-02-26] MEDS: NOREPINEPHRINE 8 MG/250ML KIT 250 ML IV ONE (00:20)
[2024-02-26] MEDS: SODIUM CHLORIDE 0.9% 2,000 ML IV ONE (00:25)
[2024-02-26] MEDS: ALBUTEROL SULF 2.5 MG/0.5ML(0.5%) NEB SOLN NEB ONE ×2 (01:03)
[2024-02-26] MEDS ORDERED: DEXTROSE (50%) 50ML SYRG IV PRN (01:15)
[2024-02-26] MEDS ORDERED: VANCOMYCIN PER PHARMACY 0 MG IV SCH (01:15)
[2024-02-26] MEDS ORDERED: ACETAMINOPHEN 325 MG TAB PO PRN (01:15)
[2024-02-26] MEDS ORDERED: NITROGLYCERIN 0.4 MG SL TAB SL PRN (01:15)
[2024-02-26] MEDS ORDERED: MORPHINE SULFATE INJ 2 MG/ml SYRG IV PRN (01:15)
[2024-02-26 01:27] LABS: Band Neutrophils % (manual) 1; Eosinophils % (manual) 10 (0-7); Lymphocytes % (manual) 55 (10.0-50.0); Monocytes % (manual) 4 (0-12)
[2024-02-26 01:28] LABS: Anisocytosis Slight; Ovalocytes FEW; Platelet Estimate Adequate
[2024-02-26] MEDS: CEFEPIME 2GM/50ML NS 50 ML IV ONE (01:42)
[2024-02-26] MEDS: fentaNYL Drip 2500mCg/250mlNS 250 ML IV SCH ×2 (01:44→14:15)
[2024-02-26] MEDS: methylPREDNISolone SOD SUCC 125 MG/2 ML VL IV ONE (01:48)
[2024-02-26] MEDS: MIDAZOLAM DRIP 50 mg/50mL 50 ML IV SCH (02:00)
[2024-02-26 02:06] LABS: Base Excess -5.9 mmol/L (-2.0-2.0)
[2024-02-26] MEDS: ALBUTEROL SULF 2.5 MG/0.5ML(0.5%) NEB SOLN NEB SCH (02:11)
[2024-02-26] MEDS: IPRATROPIUM BROM 0.5 MG/2.5ML INH SOL NEB SCH (02:11)
[2024-02-26] MEDS: PROPOFOL 100 ML IV SCH ×2 (02:25→14:30)
[2024-02-26] MEDS: VANCOMYCIN 1GM/200ML 200 ML IV ONE (04:57)
[2024-02-26] MEDS: ACCU-CHEK COMFORT CURVE STRIP VI SCH (05:08)
[2024-02-26] MEDS: InsuLIN REG 1unit/0.01ml Soln (100units/ml) SC SCH (05:09)
[2024-02-26] MEDS: CEFEPIME 2GM/50ML NS 50 ML IV SCH (06:03)
[2024-02-26 06:06] LABS: Basophils # (auto) 0 10 ^3/uL (0-0.2); Basophils % (auto) 0.2 % (0.0-2.0); Eosinophils # (auto) 0.2 10 ^3/uL (0-0.8); Eosinophils % (auto) 1.9 % (0.0-7.0); Hematocrit 28.7 % (41.0-53.0); Hemoglobin 9.7 g/dL (13.5-17.5); Lymphocytes # (auto) 0.6 10 ^3/uL (0.4-5.4); Lymphocytes % (auto) 6.7 % (10.0-50.0); Mean Corpuscular Hemoglobin 27.7 pg (28.0-32.0); Mean Corpuscular Hgb Conc. 33.8 g/dL (32.0-36.0); Monocytes # (auto) 0.1 10 ^3/uL (0-1.3); Monocytes % (auto) 1.7 % (0.0-12.0); Neutrophils # (auto) 7.5 10 ^3/uL (1.6-8.6); Neutrophils % (auto) 89.5 % (37.0-80.0); Red Cell Distribution Width 15.1 % (11.8-14.3); White Blood Cell 8.4 10^3/uL (4.4-10.8)
[2024-02-26 06:24] LABS: Base Excess -5.4 mmol/L (-2.0-2.0)
[2024-02-26 06:26] LABS: Alanine Aminotransferase 35 U/L (7-40); Albumin 3.7 g/dL (3.2-4.8); Alkaline Phosphatase 72 U/L (46-116); Anion Gap 12 (5-15); Aspartate Aminotransferase 51 U/L (13-40); BUN/Creatinine Ratio 16.4 (10.0-20.0); Blood Urea Nitrogen 19 mg/dL (9-23); Calcium 8.5 mg/dL (8.7-10.4); Carbon Dioxide 20 mmol/L (20-30); Chloride 103 mmol/L (98-107); Glucose 303 mg/dL (74-106); Magnesium 1.4 mg/dL (1.6-2.6); Potassium 3.8 mmol/L (3.5-5.1); Sodium 135 mmol/L (136-145); Total Protein 6.2 g/dL (5.7-8.2)
[2024-02-26 06:27] LABS: Bilirubin, Total 0.6 mg/dL (0.2-1.0); Phosphorus 2.7 mg/dL (2.4-5.1)
[2024-02-26] MEDS: BUDESONIDE (INHALATION) 0.5 MG/2 ML NEB NEB SCH (06:27)
[2024-02-26] MEDS ORDERED: BUDESONIDE (INHALATION) 0.5 MG/2 ML NEB NEB ONE (10:00)
[2024-02-26] MEDS ORDERED: ENOXAPARIN SOD 30 MG/0.3 ML SYRINGE SC SCH (10:00)
[2024-02-26] MEDS: MAGNESIUM SULFATE 1GM/100ML 100 ML IV SCH (11:18)
[2024-02-26] MEDS: ASCORBIC ACID 500 MG TAB PO SCH (11:18)
[2024-02-26] MEDS: ZINC SULFATE 220mg CAP or TAB PO SCH (11:18)
[2024-02-26] MEDS: MULTIPLE VITAMIN TAB PO SCH (11:18)
[2024-02-26] MEDS: PANTOPRAZOLE 40 MG/10 ML VIAL INJ IV SCH (11:18)
[2024-02-26] MEDS: ENOXAPARIN SOD 60 MG/0.6 ML SYRINGE SC SCH (11:19)
[2024-02-26] MEDS: methylPREDNISolone SOD SUCC 40 MG/ML VL IV ONE (11:19)
[2024-02-26] MEDS: DOXYCYCLINE 100MG/250ML 250 ML IV SCH (11:23)
[2024-02-26] MEDS: MAGNESIUM SULFATE 1GM/100ML 100 ML IV ONE (11:31)
[2024-02-26 12:28] LABS: Base Excess -6.6 mmol/L (-2.0-2.0)
[2024-02-26] MEDS: IOHEXOL 350 MG/ML 100ML IJ ONE (13:07)
[2024-02-26] MEDS: VANCOMYCIN 750mg/150ml 150 ML IV SCH (17:25)
[2024-02-26] MEDS ORDERED: HYDR25TA5 PO (18:11)
[2024-02-26] MEDS: methylPREDNISolone SOD SUCC 40 MG/ML VL IV SCH (22:24)
[2024-02-27] VITALS (116 sets, daily range): BP systolic 82–125; BP diastolic 48–69; PULSE 64–85; RESP 12–28; TEMP 97.2–97.9; O2SAT 95–100
[2024-02-27 04:05] LABS: Hematocrit 31.2 % (41.0-53.0); Hemoglobin 10.8 g/dL (13.5-17.5); Mean Corpuscular Hemoglobin 28.1 pg (28.0-32.0); Mean Corpuscular Hgb Conc. 34.5 g/dL (32.0-36.0); Mean Corpuscular Volume 81.2 fL (80.0-100.0); Red Blood Cells 3.84 10^6/uL (4.5-5.90); Red Cell Distribution Width 15.3 % (11.8-14.3); White Blood Cell 19.3 10^3/uL (4.4-10.8)
[2024-02-27 04:17] LABS: Basophils % (manual) 0 (0.0-2.0); Blast Cells 0; Eosinophils % (manual) 0 (0-7); Metamyelocytes % 0; Myelocytes % 0; Promyelocytes % 0; Reactive Lymphocytes 0
[2024-02-27 04:30] LABS: Alanine Aminotransferase 26 U/L (7-40); Albumin 3.8 g/dL (3.2-4.8); Alkaline Phosphatase 69 U/L (46-116); Anion Gap 14 (5-15); Aspartate Aminotransferase 20 U/L (13-40); BUN/Creatinine Ratio 14.7 (10.0-20.0); Bilirubin, Total 0.3 mg/dL (0.2-1.0); Blood Urea Nitrogen 16 mg/dL (9-23); Calcium 9.5 mg/dL (8.7-10.4); Carbon Dioxide 17 mmol/L (20-30); Chloride 103 mmol/L (98-107); Glucose 206 mg/dL (74-106); Potassium 3.6 mmol/L (3.5-5.1); Sodium 134 mmol/L (136-145); Total Protein 6.6 g/dL (5.7-8.2)
[2024-02-27 05:28] LABS: Anisocytosis Slight; Band Neutrophils % (manual) 3; Lymphocytes % (manual) 4 (10.0-50.0); Monocytes % (manual) 1 (0-12); Platelet Estimate Adequate
[2024-02-27] MEDS ORDERED: Glucerna 1.2 Cal 1Liter BOTTLE GT SCH (07:00)
[2024-02-27] MEDS: POTASSIUM CHL 20MEQ/100ML 100 ML IV SCH (08:46)
[2024-02-27 08:54] LABS: Base Excess -5.2 mmol/L (-2.0-2.0)
[2024-02-27] MEDS: PIPERACILLIN-TAZO 4.5GM 100 ML IV ONE (09:16)
[2024-02-27] MEDS: PIPERACILLIN-TAZO 4.5GM 100 ML IV SCH (15:26)
[2024-02-27 16:38] LABS: Base Excess -7.5 mmol/L (-2.0-2.0)
[2024-02-27 16:51] LABS: Amphetamine Screen, Urine Neg (NEGATIVE); Barbiturate Scree,Urine Neg (NEGATIVE); Benzodiazephine Screen, Urine Neg (NEGATIVE)
[2024-02-27 16:52] LABS: Cannabinoid Screen, Urine Neg (NEGATIVE); Cocaine Screen, Urine Neg (NEGATIVE); Opiate Scree,Urine Neg (NEGATIVE); Phencyclidine Screen, Urine Neg (NEGATIVE)
[2024-02-28] VITALS (115 sets, daily range): BP systolic 53–131; BP diastolic 42–68; PULSE 1–88; RESP 12–26; TEMP 97.6–98.3; O2SAT 96–100
[2024-02-28 04:00] LABS: Alanine Aminotransferase 19 U/L (7-40); Albumin 3.8 g/dL (3.2-4.8); Alkaline Phosphatase 65 U/L (46-116); Anion Gap 9 (5-15); Aspartate Aminotransferase 10 U/L (13-40); BUN/Creatinine Ratio 16.9 (10.0-20.0); Basophils # (auto) 0 10 ^3/uL (0-0.2); Calcium 9.1 mg/dL (8.7-10.4); Carbon Dioxide 21 mmol/L (20-30); Chloride 105 mmol/L (98-107); Eosinophils # (auto) 0 10 ^3/uL (0-0.8); Glucose 239 mg/dL (74-106); Hematocrit 29.8 % (41.0-53.0); Hemoglobin 9.9 g/dL (13.5-17.5); Lymphocytes # (auto) 0.9 10 ^3/uL (0.4-5.4); Lymphocytes % (auto) 4.2 % (10.0-50.0); Mean Corpuscular Hemoglobin 27.9 pg (28.0-32.0); Mean Corpuscular Hgb Conc. 33.4 g/dL (32.0-36.0); Mean Corpuscular Volume 83.5 fL (80.0-100.0); Monocytes # (auto) 0.2 10 ^3/uL (0-1.3); Monocytes % (auto) 0.7 % (0.0-12.0); Neutrophils # (auto) 20.5 10 ^3/uL (1.6-8.6); Neutrophils % (auto) 95.1 % (37.0-80.0); Potassium 5.3 mmol/L (3.5-5.1); Red Blood Cells 3.56 10^6/uL (4.5-5.90); Red Cell Distribution Width 15.8 % (11.8-14.3); Sodium 135 mmol/L (136-145); White Blood Cell 21.6 10^3/uL (4.4-10.8)
[2024-02-28 04:01] LABS: Bilirubin, Total 0.3 mg/dL (0.2-1.0); Total Protein 6.5 g/dL (5.7-8.2)
[2024-02-28 04:29] LABS: Blood Urea Nitrogen 26 mg/dL (9-23)
[2024-02-28] MEDS: SODIUM ZIRCONIUM CYCL 10 GM PAK PO ONE (06:40)
[2024-02-28 08:32] LABS: Base Excess -6.5 mmol/L (-2.0-2.0)
[2024-02-28] MEDS: GASTROGRAFIN 120 ML SOL ONE (09:53)
[2024-02-28 12:17] LABS: Chloride 107 mmol/L (98-107); Potassium 4.5 mmol/L (3.5-5.1); Sodium 136 mmol/L (136-145)
[2024-02-28 12:18] LABS: Anion Gap 7 (5-15); Calcium 9.5 mg/dL (8.7-10.4); Carbon Dioxide 22 mmol/L (20-30)
[2024-02-28 12:23] LABS: BUN/Creatinine Ratio 19.9 (10.0-20.0); Blood Urea Nitrogen 28 mg/dL (9-23); Glucose 219 mg/dL (74-106)
[2024-02-28 13:29] LABS: Base Excess -5.3 mmol/L (-2.0-2.0)
[2024-02-28] MEDS ORDERED: levoFLOXacin 500MG 100 ML IV ONE (17:45)
[2024-02-28] MEDS: levoFLOXacin 750MG 150 ML IV ONE (18:10)
[2024-02-28] MEDS: PANTOPRAZOLE 40 MG/10 ML VIAL INJ IV SCH (22:16)
[2024-02-29] VITALS (107 sets, daily range): BP systolic 83–141; BP diastolic 51–80; PULSE 66–111; RESP 17–26; TEMP 97.6–98.5; O2SAT 92–100
[2024-02-29 04:04] LABS: Basophils # (auto) 0 10 ^3/uL (0-0.2); Eosinophils # (auto) 0 10 ^3/uL (0-0.8); Hematocrit 27.2 % (41.0-53.0); Hemoglobin 9.1 g/dL (13.5-17.5); Lymphocytes # (auto) 1.6 10 ^3/uL (0.4-5.4); Mean Corpuscular Hemoglobin 27.6 pg (28.0-32.0); Mean Corpuscular Hgb Conc. 33.6 g/dL (32.0-36.0); Mean Corpuscular Volume 82.2 fL (80.0-100.0); Monocytes # (auto) 0.6 10 ^3/uL (0-1.3); Monocytes % (auto) 4.8 % (0.0-12.0); Neutrophils % (auto) 82.2 % (37.0-80.0); Red Blood Cells 3.31 10^6/uL (4.5-5.90); Red Cell Distribution Width 15.3 % (11.8-14.3); White Blood Cell 12.2 10^3/uL (4.4-10.8)
[2024-02-29 04:05] LABS: Anion Gap 8 (5-15); Carbon Dioxide 24 mmol/L (20-30); Chloride 108 mmol/L (98-107); Potassium 3.7 mmol/L (3.5-5.1); Sodium 140 mmol/L (136-145)
[2024-02-29 04:06] LABS: Calcium 9.1 mg/dL (8.7-10.4)
[2024-02-29 04:11] LABS: Blood Urea Nitrogen 23 mg/dL (9-23)
[2024-02-29 04:25] LABS: Glucose 112 mg/dL (74-106)
[2024-02-29 07:43] LABS: Base Excess -5.4 mmol/L (-2.0-2.0)
[2024-02-29] MEDS: GASTROGRAFIN 120 ML SOL ONE (08:56)
[2024-02-29 09:37] LABS: Base Excess -2.3 mmol/L (-2.0-2.0)
[2024-02-29] MEDS: methylPREDNISolone SOD SUCC 40 MG/ML VL IV SCH (09:52)
[2024-02-29] MEDS: ERTAPENEM SOD INJ 1 GM in SODIUM CHL 0.9% 50 ML IV SCH (09:53)
[2024-02-29] MEDS ORDERED: levoFLOXacin 750MG 150 ML IV SCH (18:00)
[2024-02-29] MEDS: DOCUSATE SOD 100 MG CAP PO PRN (22:07)
[2024-03-01] VITALS (99 sets, daily range): BP systolic 103–181; BP diastolic 56–94; PULSE 66–111; RESP 9–25; TEMP 92.8–99; O2SAT 93–100
[2024-03-01 03:45] LABS: Basophils # (auto) 0 10 ^3/uL (0-0.2); Basophils % (auto) 0.1 % (0.0-2.0); Eosinophils # (auto) 0 10 ^3/uL (0-0.8); Hemoglobin 9.3 g/dL (13.5-17.5); Lymphocytes # (auto) 1.8 10 ^3/uL (0.4-5.4); Lymphocytes % (auto) 25.2 % (10.0-50.0); Mean Corpuscular Hemoglobin 27.6 pg (28.0-32.0); Mean Corpuscular Hgb Conc. 33.1 g/dL (32.0-36.0); Mean Corpuscular Volume 83.3 fL (80.0-100.0); Monocytes # (auto) 0.5 10 ^3/uL (0-1.3); Monocytes % (auto) 6.4 % (0.0-12.0); Neutrophils # (auto) 4.9 10 ^3/uL (1.6-8.6); Neutrophils % (auto) 68.3 % (37.0-80.0); Red Blood Cells 3.36 10^6/uL (4.5-5.90); Red Cell Distribution Width 15.7 % (11.8-14.3); White Blood Cell 7.2 10^3/uL (4.4-10.8)
[2024-03-01 04:07] LABS: Alanine Aminotransferase 15 U/L (7-40); Albumin 3.5 g/dL (3.2-4.8); Alkaline Phosphatase 56 U/L (46-116); Anion Gap 9 (5-15); Aspartate Aminotransferase 10 U/L (13-40); Bilirubin, Total 0.4 mg/dL (0.2-1.0); Calcium 9.2 mg/dL (8.7-10.4); Carbon Dioxide 25 mmol/L (20-30); Chloride 112 mmol/L (98-107); Glucose 111 mg/dL (74-106); Magnesium 2.1 mg/dL (1.6-2.6); Potassium 3.5 mmol/L (3.5-5.1); Total Protein 5.8 g/dL (5.7-8.2)
[2024-03-01 04:16] LABS: Blood Urea Nitrogen 36 mg/dL (9-23); Sodium 146 mmol/L (136-145)
[2024-03-01 08:52] LABS: Base Excess -2.1 mmol/L (-2.0-2.0)
[2024-03-01] MEDS: FUROSEMIDE 20 MG/2 ML VIAL IV ONE (09:32)
[2024-03-01] MEDS: POTASSIUM CHL 20MEQ/100ML 100 ML IV SCH (10:00)
[2024-03-01 12:03] LABS: Base Excess -1.2 mmol/L (-2.0-2.0)
[2024-03-01] MEDS: hydrALAZINE HCL 20 MG/ML VL IV PRN (15:15)
[2024-03-02] VITALS (97 sets, daily range): BP systolic 97–170; BP diastolic 50–105; PULSE 73–110; RESP 9–29; TEMP 97.3–98.8; O2SAT 94–100
[2024-03-02 04:29] LABS: Basophils # (auto) 0 10 ^3/uL (0-0.2); Eosinophils # (auto) 0 10 ^3/uL (0-0.8); Eosinophils % (auto) 0.3 % (0.0-7.0); Hematocrit 31.2 % (41.0-53.0); Hemoglobin 10.6 g/dL (13.5-17.5); Lymphocytes # (auto) 1.8 10 ^3/uL (0.4-5.4); Lymphocytes % (auto) 26.5 % (10.0-50.0); Mean Corpuscular Hemoglobin 27.9 pg (28.0-32.0); Monocytes # (auto) 0.5 10 ^3/uL (0-1.3); Monocytes % (auto) 8.1 % (0.0-12.0); Neutrophils # (auto) 4.4 10 ^3/uL (1.6-8.6); Neutrophils % (auto) 65.1 % (37.0-80.0); Nucleated Red Blood Cells % 0.1 %; Red Blood Cells 3.81 10^6/uL (4.5-5.90); White Blood Cell 6.7 10^3/uL (4.4-10.8)
[2024-03-02 04:36] LABS: Alanine Aminotransferase 15 U/L (7-40); Alkaline Phosphatase 67 U/L (46-116); Anion Gap 14 (5-15); Aspartate Aminotransferase 13 U/L (13-40); Blood Urea Nitrogen 34 mg/dL (9-23); Carbon Dioxide 24 mmol/L (20-30); Chloride 110 mmol/L (98-107); Glucose 167 mg/dL (74-106); Potassium 3.4 mmol/L (3.5-5.1); Sodium 148 mmol/L (136-145)
[2024-03-02 04:37] LABS: Bilirubin, Total 0.4 mg/dL (0.2-1.0); Total Protein 6.8 g/dL (5.7-8.2)
[2024-03-02] MEDS ORDERED: POTASSIUM EFFERVESENT TAB 25 MEQ GT ONE (06:45)
[2024-03-02] MEDS ORDERED: ENALAPRILAT 1.25 MG/ML-1ML VIAL IV PRN (08:00)
[2024-03-02] MEDS: POTASSIUM CHL 20MEQ/100ML 100 ML IV ONE ×2 (08:20→11:05)
[2024-03-02] MEDS: amLODIPine BESYLATE 5 MG TAB NG ONE (09:10)
[2024-03-02] MEDS: FREE WATER GT SCH (12:00)
[2024-03-02 15:13] LABS: Base Excess -5.3 mmol/L (-2.0-2.0)
[2024-03-02] MEDS: D5W 5% 1,000 ML IV ONE (16:39)
[2024-03-02] MEDS: LIDOCAINE 2% (LOCAL ANESTH.) PF 5ml SDV ONE (18:16)
[2024-03-03] VITALS (98 sets, daily range): BP systolic 64–164; BP diastolic 37–87; PULSE 68–109; RESP 10–32; TEMP 97.6–99; O2SAT 64–100
[2024-03-03 04:06] LABS: Basophils # (auto) 0 10 ^3/uL (0-0.2); Basophils % (auto) 0.1 % (0.0-2.0); Eosinophils # (auto) 0 10 ^3/uL (0-0.8); Eosinophils % (auto) 0.4 % (0.0-7.0); Hematocrit 32.5 % (41.0-53.0); Lymphocytes # (auto) 1.9 10 ^3/uL (0.4-5.4); Lymphocytes % (auto) 30.6 % (10.0-50.0); Mean Corpuscular Hemoglobin 27.7 pg (28.0-32.0); Mean Corpuscular Hgb Conc. 33.7 g/dL (32.0-36.0); Mean Corpuscular Volume 82.3 fL (80.0-100.0); Monocytes # (auto) 0.5 10 ^3/uL (0-1.3); Monocytes % (auto) 8.8 % (0.0-12.0); Neutrophils # (auto) 3.7 10 ^3/uL (1.6-8.6); Neutrophils % (auto) 60.1 % (37.0-80.0); Nucleated Red Blood Cells % 0.1 %; Red Blood Cells 3.95 10^6/uL (4.5-5.90); Red Cell Distribution Width 15.7 % (11.8-14.3); White Blood Cell 6.2 10^3/uL (4.4-10.8)
[2024-03-03 04:41] LABS: Alanine Aminotransferase 15 U/L (7-40); Albumin 4.1 g/dL (3.2-4.8); Alkaline Phosphatase 71 U/L (46-116); Anion Gap 7 (5-15); Aspartate Aminotransferase 9 U/L (13-40); BUN/Creatinine Ratio 30.8 (10.0-20.0); Bilirubin, Total 0.4 mg/dL (0.2-1.0); Blood Urea Nitrogen 28 mg/dL (9-23); Calcium 10.2 mg/dL (8.7-10.4); Carbon Dioxide 27 mmol/L (20-30); Chloride 112 mmol/L (98-107); Glucose 124 mg/dL (74-106); Magnesium 1.9 mg/dL (1.6-2.6); Potassium 3.3 mmol/L (3.5-5.1); Sodium 146 mmol/L (136-145)
[2024-03-03] MEDS: D5W 5% 1,000 ML IV ONE (07:00)
[2024-03-03 07:32] LABS: Base Excess -2.8 mmol/L (-2.0-2.0)
[2024-03-03] MEDS: MIDAZOLAM DRIP 50 mg/50mL 50 ML IV SCH (07:45)
[2024-03-03] MEDS: PROPOFOL 100 ML IV SCH (07:45)
[2024-03-03] MEDS: fentaNYL Drip 2500mCg/250mlNS 250 ML IV SCH (08:15)
[2024-03-03] MEDS ORDERED: EPINEPHrine HCL 1 MG/1 ML AMP ONE (08:32)
[2024-03-03] MEDS ORDERED: LIDOCAINE 2%HCL (LOCAL ANESTH.) INJ 20ML MDV ONE (08:32)
[2024-03-03] MEDS ORDERED: LIDOCAINE 2% JELLY 11ml (GLYDO) ONE (08:32)
[2024-03-03] MEDS ORDERED: SODIUM CHLORIDE LOCK 0 ML ONE (08:32)
[2024-03-03] MEDS ORDERED: fentaNYL CITRATE 100 MCG/2 ML VL ONE (08:33)
[2024-03-03] MEDS ORDERED: MIDAZOLAM HCL 5 MG/ML-1ML VIAL ONE (08:33)
[2024-03-03] MEDS ORDERED: GLYCOPYRROLATE 0.2 MG/ML 1ML VIAL ONE (08:33)
[2024-03-03] MEDS: ETOMIDATE (2MG/ML) 20ML VIAL IV ONE (09:09)
[2024-03-03] MEDS: ROCURONIUM 10MG/ML 10ML VIAL IV ONE (09:13)
[2024-03-03] MEDS: POTASSIUM CHLORIDE 40 MEQ, LIDOCAINE 1% (LOCAL ANESTH.) 4 ML in SODIUM CHL 0.9% 250 ML IV ONE (09:50)
[2024-03-03] MEDS: methylPREDNISolone SOD SUCC 40 MG/ML VL IV ONE (10:55)
[2024-03-03] MEDS: MAGNESIUM SULFATE 1GM/100ML 100 ML IV SCH (10:55)
[2024-03-03 11:23] LABS: Base Excess -6.6 mmol/L (-2.0-2.0)
[2024-03-03] MEDS: INSULIN LANTUS (GLARGINE) 1 /0.01ml (100units/ml) SC ONE (17:45)
[2024-03-03] MEDS: FUROSEMIDE 40 MG/4 ML VIAL IV ONE (18:34)
[2024-03-04] VITALS (108 sets, daily range): BP systolic 72–163; BP diastolic 45–92; PULSE 67–108; RESP 8–33; TEMP 97.7–98.4; O2SAT 82–100
[2024-03-04 03:52] LABS: Basophils # (auto) 0.1 10 ^3/uL (0-0.2); Basophils % (auto) 0.4 % (0.0-2.0); Eosinophils # (auto) 0 10 ^3/uL (0-0.8); Eosinophils % (auto) 0.1 % (0.0-7.0); Hemoglobin 11.1 g/dL (13.5-17.5); Lymphocytes # (auto) 2.8 10 ^3/uL (0.4-5.4); Lymphocytes % (auto) 16.9 % (10.0-50.0); Mean Corpuscular Hemoglobin 27.4 pg (28.0-32.0); Mean Corpuscular Hgb Conc. 33.6 g/dL (32.0-36.0); Mean Corpuscular Volume 81.6 fL (80.0-100.0); Monocytes # (auto) 0.8 10 ^3/uL (0-1.3); Neutrophils # (auto) 12.7 10 ^3/uL (1.6-8.6); Neutrophils % (auto) 77.6 % (37.0-80.0); Red Blood Cells 4.05 10^6/uL (4.5-5.90); Red Cell Distribution Width 15.5 % (11.8-14.3); White Blood Cell 16.4 10^3/uL (4.4-10.8)
[2024-03-04 04:00] LABS: Chloride 109 mmol/L (98-107); Potassium 3.8 mmol/L (3.5-5.1); Sodium 142 mmol/L (136-145)
[2024-03-04 04:01] LABS: Anion Gap 11 (5-15); Calcium 9.8 mg/dL (8.7-10.4); Carbon Dioxide 22 mmol/L (20-30)
[2024-03-04 04:05] LABS: Alkaline Phosphatase 69 U/L (46-116)
[2024-03-04 04:06] LABS: Albumin 3.9 g/dL (3.2-4.8); BUN/Creatinine Ratio 32.3 (10.0-20.0); Glucose 142 mg/dL (74-106)
[2024-03-04 04:07] LABS: Magnesium 2.3 mg/dL (1.6-2.6)
[2024-03-04 04:08] LABS: Aspartate Aminotransferase < 8 U/L (13-40); Bilirubin, Total 0.4 mg/dL (0.2-1.0)
[2024-03-04 04:09] LABS: Total Protein 6.6 g/dL (5.7-8.2)
[2024-03-04 04:13] LABS: Blood Urea Nitrogen 43 mg/dL (9-23)
[2024-03-04 04:28] LABS: Alanine Aminotransferase 13 U/L (7-40)
[2024-03-04] MEDS: INSULIN LANTUS (GLARGINE) 1 /0.01ml (100units/ml) SC SCH (06:46)
[2024-03-04 07:27] LABS: Base Excess -1.4 mmol/L (-2.0-2.0)
[2024-03-04 15:05] LABS: Base Excess -3.8 mmol/L (-2.0-2.0)
[2024-03-04] MEDS: ALBUTEROL SULF 2.5 MG/0.5ML(0.5%) NEB SOLN NEB ONE (16:45)
[2024-03-04] MEDS: ALBUTEROL SULF 2.5 MG/0.5ML(0.5%) NEB SOLN ONE (16:48)
[2024-03-04] MEDS: methylPREDNISolone SOD SUCC 40 MG/ML VL IV SCH (16:48)
[2024-03-04] MEDS: ETOMIDATE (2MG/ML) 20ML VIAL IV ONE (20:35)
[2024-03-04] MEDS: SUCCINYLCHOLINE CHLORIDE 20 MG/ML 10ML VIAL IV ONE (20:40)
[2024-03-05] VITALS (111 sets, daily range): BP systolic 62–136; BP diastolic 41–79; PULSE 73–106; RESP 12–24; TEMP 97.4–98.6; O2SAT 10–100
[2024-03-05 03:54] LABS: Basophils # (auto) 0 10 ^3/uL (0-0.2); Basophils % (auto) 0.1 % (0.0-2.0); Eosinophils # (auto) 0 10 ^3/uL (0-0.8); Hematocrit 30.3 % (41.0-53.0); Hemoglobin 10.3 g/dL (13.5-17.5); Lymphocytes # (auto) 0.9 10 ^3/uL (0.4-5.4); Lymphocytes % (auto) 11.3 % (10.0-50.0); Mean Corpuscular Hemoglobin 27.7 pg (28.0-32.0); Mean Corpuscular Hgb Conc. 33.9 g/dL (32.0-36.0); Mean Corpuscular Volume 81.5 fL (80.0-100.0); Monocytes # (auto) 0.1 10 ^3/uL (0-1.3); Monocytes % (auto) 1.2 % (0.0-12.0); Neutrophils # (auto) 6.8 10 ^3/uL (1.6-8.6); Neutrophils % (auto) 87.4 % (37.0-80.0); Red Blood Cells 3.72 10^6/uL (4.5-5.90); Red Cell Distribution Width 15.9 % (11.8-14.3); White Blood Cell 7.7 10^3/uL (4.4-10.8)
[2024-03-05 03:55] LABS: Anion Gap 10 (5-15); Calcium 9.7 mg/dL (8.7-10.4); Carbon Dioxide 24 mmol/L (20-30); Chloride 111 mmol/L (98-107); Potassium 3.9 mmol/L (3.5-5.1); Sodium 145 mmol/L (136-145)
[2024-03-05 04:01] LABS: BUN/Creatinine Ratio 38.8 (10.0-20.0); Blood Urea Nitrogen 47 mg/dL (9-23); Glucose 150 mg/dL (74-106)
[2024-03-05 04:02] LABS: Magnesium 2.2 mg/dL (1.6-2.6)
[2024-03-05 04:05] LABS: Base Excess 0.2 mmol/L (-2.0-2.0)
[2024-03-05 07:52] LABS: Base Excess -1.9 mmol/L (-2.0-2.0)
[2024-03-05 16:21] LABS: Base Excess -2.9 mmol/L (-2.0-2.0)
[2024-03-06] VITALS (104 sets, daily range): BP systolic 82–139; BP diastolic 46–78; PULSE 70–92; RESP 11–22; TEMP 97.4–98.3; O2SAT 97–100
[2024-03-06 04:12] LABS: Basophils # (auto) 0 10 ^3/uL (0-0.2); Basophils % (auto) 0.1 % (0.0-2.0); Eosinophils # (auto) 0 10 ^3/uL (0-0.8); Hematocrit 31.5 % (41.0-53.0); Hemoglobin 10.7 g/dL (13.5-17.5); Lymphocytes # (auto) 0.6 10 ^3/uL (0.4-5.4); Lymphocytes % (auto) 8.1 % (10.0-50.0); Mean Corpuscular Hgb Conc. 33.9 g/dL (32.0-36.0); Mean Corpuscular Volume 82.5 fL (80.0-100.0); Monocytes # (auto) 0.2 10 ^3/uL (0-1.3); Neutrophils % (auto) 89.8 % (37.0-80.0); Red Blood Cells 3.82 10^6/uL (4.5-5.90); White Blood Cell 7.8 10^3/uL (4.4-10.8)
[2024-03-06 04:22] LABS: Anion Gap 10 (5-15); Calcium 9.8 mg/dL (8.7-10.4); Carbon Dioxide 23 mmol/L (20-30); Chloride 114 mmol/L (98-107); Potassium 3.8 mmol/L (3.5-5.1); Sodium 147 mmol/L (136-145)
[2024-03-06 04:28] LABS: BUN/Creatinine Ratio 39.2 (10.0-20.0); Blood Urea Nitrogen 40 mg/dL (9-23); Glucose 173 mg/dL (74-106)
[2024-03-06 07:27] LABS: Base Excess -5.9 mmol/L (-2.0-2.0)
[2024-03-06] MEDS: D5W/SOD CHL 0.45% 1,000 ML IV SCH (14:45)
[2024-03-06 16:18] LABS: Base Excess -0.9 mmol/L (-2.0-2.0)
[2024-03-07] VITALS (110 sets, daily range): BP systolic 94–157; BP diastolic 55–103; PULSE 71–102; RESP 9–26; TEMP 97.9–98.2; O2SAT 97–100
[2024-03-07 07:51] LABS: Base Excess -1.4 mmol/L (-2.0-2.0)
[2024-03-07 08:01] LABS: Basophils # (auto) 0 10 ^3/uL (0-0.2); Eosinophils # (auto) 0 10 ^3/uL (0-0.8); Hematocrit 30.7 % (41.0-53.0); Hemoglobin 10.3 g/dL (13.5-17.5); Lymphocytes # (auto) 0.5 10 ^3/uL (0.4-5.4); Lymphocytes % (auto) 7.7 % (10.0-50.0); Mean Corpuscular Hemoglobin 27.9 pg (28.0-32.0); Mean Corpuscular Hgb Conc. 33.6 g/dL (32.0-36.0); Mean Corpuscular Volume 83.1 fL (80.0-100.0); Monocytes # (auto) 0.1 10 ^3/uL (0-1.3); Monocytes % (auto) 1.2 % (0.0-12.0); Neutrophils # (auto) 5.7 10 ^3/uL (1.6-8.6); Neutrophils % (auto) 91.1 % (37.0-80.0); Red Blood Cells 3.69 10^6/uL (4.5-5.90); Red Cell Distribution Width 16.4 % (11.8-14.3); White Blood Cell 6.3 10^3/uL (4.4-10.8)
[2024-03-07 08:07] LABS: Chloride 116 mmol/L (98-107); Potassium 3.7 mmol/L (3.5-5.1); Sodium 148 mmol/L (136-145)
[2024-03-07 08:08] LABS: Anion Gap 7 (5-15); Carbon Dioxide 25 mmol/L (20-30)
[2024-03-07 08:09] LABS: Calcium 9.6 mg/dL (8.7-10.4)
[2024-03-07 08:13] LABS: Glucose 270 mg/dL (74-106)
[2024-03-07 08:14] LABS: BUN/Creatinine Ratio 31.4 (10.0-20.0); Blood Urea Nitrogen 32 mg/dL (9-23)
[2024-03-07 13:04] LABS: Base Excess -1.5 mmol/L (-2.0-2.0)
[2024-03-08] VITALS (71 sets, daily range): BP systolic 116–158; BP diastolic 61–97; PULSE 67–110; RESP 11–29; TEMP 97.9–98.8; O2SAT 93–100
[2024-03-08 04:29] LABS: Basophils # (auto) 0 10 ^3/uL (0-0.2); Eosinophils # (auto) 0 10 ^3/uL (0-0.8); Hematocrit 31.7 % (41.0-53.0); Hemoglobin 10.6 g/dL (13.5-17.5); Lymphocytes # (auto) 0.6 10 ^3/uL (0.4-5.4); Lymphocytes % (auto) 7.4 % (10.0-50.0); Mean Corpuscular Hemoglobin 27.7 pg (28.0-32.0); Mean Corpuscular Hgb Conc. 33.6 g/dL (32.0-36.0); Mean Corpuscular Volume 82.4 fL (80.0-100.0); Monocytes # (auto) 0.2 10 ^3/uL (0-1.3); Monocytes % (auto) 2.5 % (0.0-12.0); Neutrophils # (auto) 7.9 10 ^3/uL (1.6-8.6); Neutrophils % (auto) 90.1 % (37.0-80.0); Nucleated Red Blood Cells % 0.1 %; Red Blood Cells 3.84 10^6/uL (4.5-5.90); Red Cell Distribution Width 16.4 % (11.8-14.3); White Blood Cell 8.8 10^3/uL (4.4-10.8)
[2024-03-08 04:33] LABS: Anion Gap 10 (5-15); Carbon Dioxide 25 mmol/L (20-30); Chloride 113 mmol/L (98-107); Potassium 3.5 mmol/L (3.5-5.1); Sodium 148 mmol/L (136-145)
[2024-03-08 04:34] LABS: Calcium 9.4 mg/dL (8.7-10.4)
[2024-03-08 04:39] LABS: BUN/Creatinine Ratio 22.1 (10.0-20.0); Blood Urea Nitrogen 19 mg/dL (9-23); Glucose 173 mg/dL (74-106); Magnesium 1.8 mg/dL (1.6-2.6)
[2024-03-08 07:08] LABS: Base Excess 0.3 mmol/L (-2.0-2.0)
[2024-03-09] VITALS (23 sets, daily range): BP systolic 107–142; BP diastolic 63–78; PULSE 68–108; RESP 17–22; TEMP 97.5–98.4; O2SAT 93–100
[2024-03-09 07:47] LABS: Calcium 9.6 mg/dL (8.7-10.4); Chloride 108 mmol/L (98-107); Potassium 3.1 mmol/L (3.5-5.1); Sodium 143 mmol/L (136-145)
[2024-03-09 07:48] LABS: Anion Gap 8 (5-15); Carbon Dioxide 27 mmol/L (20-30)
[2024-03-09 07:53] LABS: BUN/Creatinine Ratio 23.3 (10.0-20.0); Blood Urea Nitrogen 20 mg/dL (9-23); Glucose 172 mg/dL (74-106)
[2024-03-10] VITALS (18 sets, daily range): BP systolic 99–125; BP diastolic 63–71; PULSE 52–99; RESP 16–20; TEMP 98–98.6; O2SAT 92–100
[2024-03-10 11:55] LABS: Basophils # (auto) 0 10 ^3/uL (0-0.2); Eosinophils # (auto) 0 10 ^3/uL (0-0.8); Hematocrit 38.2 % (41.0-53.0); Hemoglobin 12.9 g/dL (13.5-17.5); Lymphocytes # (auto) 0.8 10 ^3/uL (0.4-5.4); Lymphocytes % (auto) 4.9 % (10.0-50.0); Mean Corpuscular Hemoglobin 27.8 pg (28.0-32.0); Mean Corpuscular Hgb Conc. 33.7 g/dL (32.0-36.0); Mean Corpuscular Volume 82.3 fL (80.0-100.0); Monocytes # (auto) 0.2 10 ^3/uL (0-1.3); Monocytes % (auto) 1.2 % (0.0-12.0); Neutrophils # (auto) 15.9 10 ^3/uL (1.6-8.6); Neutrophils % (auto) 93.9 % (37.0-80.0); Red Blood Cells 4.64 10^6/uL (4.5-5.90); Red Cell Distribution Width 16.2 % (11.8-14.3)
[2024-03-10 12:03] LABS: Alanine Aminotransferase 21 U/L (7-40); Alkaline Phosphatase 82 U/L (46-116); Anion Gap 7 (5-15); Aspartate Aminotransferase 10 U/L (13-40); BUN/Creatinine Ratio 22.5 (10.0-20.0); Bilirubin, Total 0.6 mg/dL (0.2-1.0); Blood Urea Nitrogen 25 mg/dL (9-23); Calcium 9.7 mg/dL (8.7-10.4); Carbon Dioxide 25 mmol/L (20-30); Chloride 104 mmol/L (98-107); Magnesium 1.7 mg/dL (1.6-2.6); Potassium 3.8 mmol/L (3.5-5.1); Sodium 136 mmol/L (136-145); Total Protein 6.8 g/dL (5.7-8.2)
[2024-03-10 12:08] LABS: Glucose 296 mg/dL (74-106)
[2024-03-11] VITALS (21 sets, daily range): BP systolic 101–129; BP diastolic 53–75; PULSE 71–108; RESP 16–20; TEMP 97.4–98.2; O2SAT 94–100
[2024-03-11] MEDS: MELATONIN 5 MG TAB PO ONE (03:16)
[2024-03-11] MEDS: QUEtiapine FUMARATE 25 MG TAB PO SCH (21:13)
[2024-03-12] VITALS (22 sets, daily range): BP systolic 91–132; BP diastolic 59–78; PULSE 78–100; RESP 14–18; TEMP 97.9–98.7; O2SAT 94–100
[2024-03-12 14:04] LABS: Basophils # (auto) 0 10 ^3/uL (0-0.2); Basophils % (auto) 0.1 % (0.0-2.0); Eosinophils # (auto) 0.1 10 ^3/uL (0-0.8); Eosinophils % (auto) 0.5 % (0.0-7.0); Hematocrit 29.5 % (41.0-53.0); Hemoglobin 10.1 g/dL (13.5-17.5); Lymphocytes % (auto) 18.5 % (10.0-50.0); Mean Corpuscular Hgb Conc. 34.3 g/dL (32.0-36.0); Mean Corpuscular Volume 81.6 fL (80.0-100.0); Monocytes # (auto) 0.7 10 ^3/uL (0-1.3); Monocytes % (auto) 6.2 % (0.0-12.0); Neutrophils % (auto) 74.7 % (37.0-80.0); Nucleated Red Blood Cells % 0.1 %; Red Blood Cells 3.62 10^6/uL (4.5-5.90); White Blood Cell 10.7 10^3/uL (4.4-10.8)
[2024-03-12 14:24] LABS: Alanine Aminotransferase 26 U/L (7-40); Albumin 3.2 g/dL (3.2-4.8); Alkaline Phosphatase 73 U/L (46-116); Anion Gap 5 (5-15); Aspartate Aminotransferase 17 U/L (13-40); BUN/Creatinine Ratio 20.4 (10.0-20.0); Blood Urea Nitrogen 20 mg/dL (9-23); Calcium 8.7 mg/dL (8.7-10.4); Carbon Dioxide 27 mmol/L (20-30); Chloride 101 mmol/L (98-107); Glucose 230 mg/dL (74-106); Potassium 3.9 mmol/L (3.5-5.1); Sodium 133 mmol/L (136-145)
[2024-03-12 14:25] LABS: Bilirubin, Total 0.4 mg/dL (0.2-1.0); Total Protein 5.1 g/dL (5.7-8.2)
[2024-03-12] MEDS: ATORVASTATIN 20 MG TAB PO SCH (20:45)
[2024-03-12] MEDS: MEMANTINE HCL 5 MG TAB PO SCH (20:45)
[2024-03-12] MEDS: ENOXAPARIN SOD 60 MG/0.6 ML SYRINGE SC SCH (20:46)
[2024-03-12] MEDS: FLUTICASONE PROP NASAL SPR 0.05 % (50MCG) 16GM SCH (22:00)
[2024-03-12] MEDS ORDERED: methylPREDNISolone SOD SUCC 40 MG/ML VL IV SCH (22:00)
[2024-03-13] VITALS (22 sets, daily range): BP systolic 97–124; BP diastolic 66–74; PULSE 78–103; RESP 16–20; TEMP 97.9–98.7; O2SAT 95–100
[2024-03-13] MEDS ORDERED: PATIENTS OWN MEDICATION (Simvastatin 1 TAB) PO SCH (10:00)
[2024-03-13] MEDS: ALBUTEROL SULF 2.5 MG/0.5ML(0.5%) NEB SOLN NEB SCH (18:09)
[2024-03-14] VITALS (22 sets, daily range): BP systolic 96–144; BP diastolic 49–80; PULSE 47–119; RESP 16–20; TEMP 98.1–98.4; O2SAT 95–100
[2024-03-15] VITALS (20 sets, daily range): BP systolic 93–132; BP diastolic 54–65; PULSE 55–100; RESP 15–20; TEMP 98.2–98.9; O2SAT 95–100
[2024-03-16] VITALS (14 sets, daily range): BP systolic 95–131; BP diastolic 52–61; PULSE 63–94; RESP 16–20; TEMP 98.1–98.7; O2SAT 92–100
[2024-03-16 11:55] LABS: Basophils # (auto) 0 10 ^3/uL (0-0.2); Basophils % (auto) 0.2 % (0.0-2.0); Eosinophils # (auto) 0.2 10 ^3/uL (0-0.8); Eosinophils % (auto) 3.2 % (0.0-7.0); Hematocrit 31.2 % (41.0-53.0); Hemoglobin 10.3 g/dL (13.5-17.5); Lymphocytes # (auto) 1.2 10 ^3/uL (0.4-5.4); Lymphocytes % (auto) 20.5 % (10.0-50.0); Mean Corpuscular Hemoglobin 27.6 pg (28.0-32.0); Mean Corpuscular Volume 83.6 fL (80.0-100.0); Monocytes # (auto) 0.3 10 ^3/uL (0-1.3); Monocytes % (auto) 5.1 % (0.0-12.0); Neutrophils # (auto) 4.1 10 ^3/uL (1.6-8.6); Red Blood Cells 3.73 10^6/uL (4.5-5.90); Red Cell Distribution Width 16.7 % (11.8-14.3); White Blood Cell 5.7 10^3/uL (4.4-10.8)
[2024-03-16 12:09] LABS: Alanine Aminotransferase 36 U/L (7-40); Albumin 3.2 g/dL (3.2-4.8); Alkaline Phosphatase 75 U/L (46-116); Anion Gap 4 (5-15); Aspartate Aminotransferase 23 U/L (13-40); BUN/Creatinine Ratio 9.8 (10.0-20.0); Blood Urea Nitrogen 11 mg/dL (9-23); Calcium 8.6 mg/dL (8.7-10.4); Carbon Dioxide 30 mmol/L (20-30); Chloride 105 mmol/L (98-107); Glucose 226 mg/dL (74-106); Potassium 4.2 mmol/L (3.5-5.1); Sodium 139 mmol/L (136-145)
[2024-03-16 12:10] LABS: Bilirubin, Total 0.5 mg/dL (0.2-1.0); Total Protein 5.4 g/dL (5.7-8.2)
== END 2024-03-16 19:30 | disposition home health service (06) | DRG 870 ==
LOC: EDBD 23:01 → ER 23:01 → TELE 02-26 01:10 → ICU WEST 02-26 12:26 → TELE-CENTR 03-09 00:37
PROVIDERS: ADMIT Internal Medicine Nephrology; ATTEND Internal Medicine Nephrology
PROC: 06HY33Z Insertion of Infusion Device into Lower Vein, Percutaneous Approach (ICD-10-PCS; 2024-02-25)
PROC: 5A1955Z Respiratory Ventilation, Greater than 96 Consecutive Hours (ICD-10-PCS; 2024-02-25)
PROC: 0BH17EZ Insertion of Endotracheal Airway into Trachea, Via Natural or Artificial Opening (ICD-10-PCS; 2024-02-25)
PROC: 02HV33Z Insertion of Infusion Device into Superior Vena Cava, Percutaneous Approach (ICD-10-PCS; 2024-02-28)
PROC: B548ZZA Ultrasonography of Superior Vena Cava, Guidance (ICD-10-PCS; 2024-02-28)
PROC: 0B9B8ZZ Drainage of Left Lower Lobe Bronchus, Via Natural or Artificial Opening Endoscopic (ICD-10-PCS; 2024-03-03)
PROC: 0BH17EZ Insertion of Endotracheal Airway into Trachea, Via Natural or Artificial Opening (ICD-10-PCS; 2024-03-03)
PROC: 5A1955Z Respiratory Ventilation, Greater than 96 Consecutive Hours (ICD-10-PCS; principal; 2024-03-03 08:45)
PROC: 5A09357 Assistance with Respiratory Ventilation, Less than 24 Consecutive Hours, Continuous Positive Airway Pressure (ICD-10-PCS; 2024-03-07)
DX: A41.9 Sepsis, unspecified organism (principal); J96.21 Acute and chronic respiratory failure with hypoxia; R65.21 Severe sepsis with septic shock; J98.11 Atelectasis; N17.9 Acute kidney failure, unspecified; E87.0 Hyperosmolality and hypernatremia; I10 Essential (primary) hypertension; I25.10 Atherosclerotic heart disease of native coronary artery without angina pectoris; J43.9 Emphysema, unspecified; J98.4 Other disorders of lung; L80 Vitiligo; K40.20 Bilateral inguinal hernia, without obstruction or gangrene, not specified as recurrent; D64.9 Anemia, unspecified; E78.00 Pure hypercholesterolemia, unspecified; Z88.8 Allergy status to other drugs, medicaments and biological substances; Z79.899 Other long term (current) drug therapy; Z87.891 Personal history of nicotine dependence; Z75.1 Person awaiting admission to adequate facility elsewhere
CPT/HCPCS: 31645; 36415; 36556; 36600; 70450; 70470; 71045; 71275; 74018; 74176; 74250; 76604; 76856; 80048; 80053; 80202; 80307; 80320; 81001; 82306; 82805; 82962; 83036; 83605; 83735; 83880; 84100; 84295; 84484; 85007; 85025; 85027; 87040; 87070; 87077; 87081; 87086; 87186; 87205; 92610; 93005; 93970; 94002; 94003; 94640; 94660; 97110; 97116; 97163; 97530; 99291; G0378; J0171; J0330; J0692; J1335; J1815; J1956; J2001; J2250; J2470; J2543; J2704; J3480; J3490; J7060

== ENCOUNTER 2024-03-29 19:14 | Inpatient (IN) | payer OTHER ==
[~2024-03-29] VITALS: Ht 162.6 cm; Wt 51.5 kg
[~2024-03-29 19:14] MED LIST changes: -ALBU0.084 NEB; -ALBU108A5 INH; -AZIT-185 PO; -MUPI2OIN2 EACHNOSTRI; -PRED20TA2 PO; -[UNRECOGNIZED DRUG - CODE] IN
[2024-03-29] MEDS: ETOMIDATE (2MG/ML) 20ML VIAL IV ONE (19:19)
[2024-03-29] MEDS: ROCURONIUM 10MG/ML 10ML VIAL IV ONE ×2 (19:20→19:22)
[2024-03-29] MEDS: SUCCINYLCHOLINE CHLORIDE 20 MG/ML 10ML VIAL IV ONE (19:20)
[2024-03-29] MEDS ORDERED: ROCURONIUM 10MG/ML 10ML VIAL IV ONE (19:22)
[2024-03-29] MEDS ORDERED: PROPOFOL 100 ML IV ONE (19:23)
[2024-03-29] MEDS: PROPOFOL 100 ML IV SCH (19:55)
[2024-03-29 20:00] VITALS: PULSE 113; RESP 18; O2SAT 96
[2024-03-29] MEDS: PIPERACILLIN-TAZOB 3.375GM 100 ML IV ONE (20:00)
[2024-03-29] MEDS: SODIUM CHLORIDE 0.9% 1,000 ML IV ONE ×2 (20:00)
[2024-03-29] MEDS: LABETALOL HCL 20 MG/4 ML VL IV ONE (20:00)
[2024-03-29 20:28] LABS: Basophils # (auto) 0 10 ^3/uL (0-0.2); Basophils % (auto) 0.5 % (0.0-2.0); Eosinophils # (auto) 0.3 10 ^3/uL (0-0.8); Eosinophils % (auto) 3.9 % (0.0-7.0); Hematocrit 28.1 % (41.0-53.0); Hemoglobin 9.3 g/dL (13.5-17.5); Lymphocytes # (auto) 2.4 10 ^3/uL (0.4-5.4); Lymphocytes % (auto) 27.4 % (10.0-50.0); Mean Corpuscular Hemoglobin 27.9 pg (28.0-32.0); Mean Corpuscular Volume 84.4 fL (80.0-100.0); Monocytes # (auto) 0.4 10 ^3/uL (0-1.3); Monocytes % (auto) 4.6 % (0.0-12.0); Neutrophils # (auto) 5.7 10 ^3/uL (1.6-8.6); Neutrophils % (auto) 63.6 % (37.0-80.0); Platelet Count (auto) 324 10^3/uL (140-450); Red Blood Cells 3.33 10^6/uL (4.5-5.90); Red Cell Distribution Width 17.4 % (11.8-14.3); White Blood Cell 8.9 10^3/uL (4.4-10.8)
[2024-03-29 20:49] LABS: Alanine Aminotransferase 23 U/L (7-40); Albumin 3.9 g/dL (3.2-4.8); Alkaline Phosphatase 87 U/L (46-116); Anion Gap 5 (5-15); Aspartate Aminotransferase 28 U/L (13-40); BUN/Creatinine Ratio 9.2 (10.0-20.0); Bilirubin, Total 0.6 mg/dL (0.2-1.0); Blood Urea Nitrogen 10 mg/dL (9-23); Calcium 8.6 mg/dL (8.7-10.4); Carbon Dioxide 23 mmol/L (20-30); Chloride 102 mmol/L (98-107); Glucose 182 mg/dL (74-106); Potassium 4.4 mmol/L (3.5-5.1); Sodium 130 mmol/L (136-145); Total Protein 6.3 g/dL (5.7-8.2)
[2024-03-29 20:50] LABS: INR 1.05 (0.9-1.15); Partial Thromboplastin Time 22.5 SEC (24.5-34.5); Prothrombin Time 11.1 sec (9.3-11.8)
[2024-03-29 20:54] LABS: Base Excess -6.5 mmol/L (-2.0-3.0)
[2024-03-29 20:55] LABS: Lactic Acid w/Reflex 2.6 mmol/L (0.4-2.0)
[2024-03-29 21:16] LABS: Urine Bacteria None Seen /hpf (None Seen)
[2024-03-29 21:25] LABS: Urine Amorphous Crystal FEW /hpf (None Seen); Urine Blood TRACE /uL (Negative); Urine Clarity Clear (Clear); Urine Color Colorless (Yellow); Urine Protein, UAD 1+ (Negative); Urine Specific Gravity 1.007 (1.001-1.035); Urine Urobilinogen Normal (Negative); Urine WBC 1 /hpf (0 - 3); Urine pH 6.5 (5.0-9.0)
[2024-03-29] MEDS: NOREPINEPHRINE 8 MG/250ML KIT 250 ML IV SCH (21:40)
[2024-03-29] MEDS: fentaNYL Drip 2500mCg/250mlNS 250 ML IV SCH (21:45)
[2024-03-29] MEDS: fentaNYL Drip 2500mCg/250mlNS 250 ML IV ONE (22:04)
[2024-03-29] MEDS: NOREPINEPHRINE 8 MG/250ML KIT 250 ML IV ONE (22:04)
[2024-03-30] VITALS (88 sets, daily range): BP systolic 69–173; BP diastolic 36–88; PULSE 60–89; RESP 7–26; TEMP 95.7–99.1; O2SAT 99–100
[2024-03-30] MEDS: IOHEXOL 350 MG/ML 100ML IJ ONE (00:54)
[2024-03-30] MEDS ORDERED: DEXTROSE (50%) 50ML SYRG IV PRN (03:15)
[2024-03-30] MEDS ORDERED: NITROGLYCERIN 0.4 MG SL TAB SL PRN (03:15)
[2024-03-30] MEDS ORDERED: ACETAMINOPHEN 325 MG TAB PO PRN (03:15)
[2024-03-30] MEDS ORDERED: MORPHINE SULFATE INJ 2 MG/ml SYRG IV PRN (03:15)
[2024-03-30] MEDS ORDERED: VANCOMYCIN PER PHARMACY 0 MG IV SCH (03:15)
[2024-03-30] MEDS ORDERED: ONDANSETRON HCL 4 MG/2 ML VIAL IV PRN (03:15)
[2024-03-30] MEDS: PIPERACILLIN-TAZOB 3.375GM 100 ML IV SCH (05:10)
[2024-03-30] MEDS: VANCOMYCIN 1GM/200ML 200 ML IV ONE (05:10)
[2024-03-30] MEDS: SODIUM CHLORIDE 0.9% 1,000 ML IV SCH (05:10)
[2024-03-30] MEDS: ACCU-CHEK COMFORT CURVE STRIP VI SCH (05:39)
[2024-03-30] MEDS: InsuLIN REG 1unit/0.01ml Soln (100units/ml) SC SCH (05:39)
[2024-03-30 06:44] LABS: COVID19 ANTIGEN SOFIA FIA NEGATIVE (NEGATIVE)
[2024-03-30] MEDS: ALBUTEROL SULF 2.5 MG/0.5ML(0.5%) NEB SOLN NEB PRN (06:51)
[2024-03-30 07:13] LABS: Base Excess -3.9 mmol/L (-2.0-3.0)
[2024-03-30] MEDS: ENOXAPARIN SOD 40 MG/0.4 ML SYRINGE SC SCH (10:02)
[2024-03-30 11:50] LABS: Basophils # (auto) 0 10 ^3/uL (0-0.2); Basophils % (auto) 0.1 % (0.0-2.0); Eosinophils # (auto) 0.8 10 ^3/uL (0-0.8); Eosinophils % (auto) 5.1 % (0.0-7.0); Hematocrit 28.5 % (41.0-53.0); Hemoglobin 9.7 g/dL (13.5-17.5); Lymphocytes % (auto) 13.9 % (10.0-50.0); Mean Corpuscular Hemoglobin 27.6 pg (28.0-32.0); Mean Corpuscular Volume 81.3 fL (80.0-100.0); Monocytes # (auto) 0.7 10 ^3/uL (0-1.3); Monocytes % (auto) 4.6 % (0.0-12.0); Neutrophils # (auto) 11.1 10 ^3/uL (1.6-8.6); Neutrophils % (auto) 76.3 % (37.0-80.0); Platelet Count (auto) 415 10^3/uL (140-450); White Blood Cell 14.6 10^3/uL (4.4-10.8)
[2024-03-30 12:07] LABS: Alanine Aminotransferase 29 U/L (7-40); Albumin 3.6 g/dL (3.2-4.8); Alkaline Phosphatase 91 U/L (46-116); Anion Gap 8 (5-15); Aspartate Aminotransferase 22 U/L (13-40); BUN/Creatinine Ratio 12.5 (10.0-20.0); Blood Urea Nitrogen 16 mg/dL (9-23); Calcium 9.1 mg/dL (8.7-10.4); Carbon Dioxide 24 mmol/L (20-30); Chloride 102 mmol/L (98-107); Glucose 89 mg/dL (74-106); Magnesium 1.3 mg/dL (1.6-2.6); Potassium 4.1 mmol/L (3.5-5.1); Sodium 134 mmol/L (136-145)
[2024-03-30 12:08] LABS: Bilirubin, Total 0.9 mg/dL (0.2-1.0); Total Protein 5.9 g/dL (5.7-8.2)
[2024-03-30] MEDS: NOREPINEPHRINE BITARTRATE 32 MG in SODIUM CHL 0.9% 218 ML IV SCH (12:24)
[2024-03-30] MEDS: MAGNESIUM SULFATE 1GM/100ML 100 ML IV SCH (15:35)
[2024-03-30] MEDS: ASPirin 325 MG TAB PO ONE (15:36)
[2024-03-30] MEDS: DOXYCYCLINE 100MG/250ML 250 ML IV SCH (16:13)
[2024-03-30] MEDS: VANCOMYCIN 750mg/150ml 150 ML IV SCH (18:16)
[2024-03-30] MEDS ORDERED: APIXABAN 5 MG TAB PO SCH (22:00)
[2024-03-30] MEDS ORDERED: ATORVASTATIN 20 MG TAB PO SCH (22:00)
[2024-03-30] MEDS: ENOXAPARIN SOD 100 MG/1 ML SYRINGE SC SCH (22:47)
[2024-03-30] MEDS: ATORVASTATIN 20 MG TAB PO SCH (22:49)
[2024-03-31] VITALS (106 sets, daily range): BP systolic 56–132; BP diastolic 30–65; PULSE 58–83; RESP 12–15; TEMP 92.5–99.5; O2SAT 92–100
[2024-03-31 03:56] LABS: Basophils # (auto) 0 10 ^3/uL (0-0.2); Basophils % (auto) 0.2 % (0.0-2.0); Eosinophils # (auto) 0.7 10 ^3/uL (0-0.8); Eosinophils % (auto) 6.5 % (0.0-7.0); Hemoglobin 9.3 g/dL (13.5-17.5); Lymphocytes # (auto) 1.9 10 ^3/uL (0.4-5.4); Lymphocytes % (auto) 17.5 % (10.0-50.0); Mean Corpuscular Hemoglobin 28.1 pg (28.0-32.0); Mean Corpuscular Hgb Conc. 34.4 g/dL (32.0-36.0); Mean Corpuscular Volume 81.7 fL (80.0-100.0); Monocytes # (auto) 0.4 10 ^3/uL (0-1.3); Neutrophils % (auto) 71.8 % (37.0-80.0); Platelet Count (auto) 380 10^3/uL (140-450); Red Blood Cells 3.31 10^6/uL (4.5-5.90); Red Cell Distribution Width 17.4 % (11.8-14.3); White Blood Cell 11.1 10^3/uL (4.4-10.8)
[2024-03-31 04:15] LABS: Alanine Aminotransferase 22 U/L (7-40); Albumin 3.4 g/dL (3.2-4.8); Alkaline Phosphatase 89 U/L (46-116); Anion Gap 10 (5-15); Aspartate Aminotransferase 18 U/L (13-40); BUN/Creatinine Ratio 12.2 (10.0-20.0); Bilirubin, Total 0.6 mg/dL (0.2-1.0); Blood Urea Nitrogen 16 mg/dL (9-23); Calcium 8.8 mg/dL (8.7-10.4); Carbon Dioxide 22 mmol/L (20-30); Chloride 105 mmol/L (98-107); Glucose 142 mg/dL (74-106); Magnesium 2.4 mg/dL (1.6-2.6); Potassium 4.6 mmol/L (3.5-5.1); Sodium 137 mmol/L (136-145); Total Protein 5.7 g/dL (5.7-8.2)
[2024-03-31 07:56] LABS: Base Excess -3.4 mmol/L (-2.0-3.0)
[2024-03-31] MEDS: PANTOPRAZOLE 40 MG/10 ML VIAL INJ IV SCH (09:44)
[2024-03-31] MEDS: ASPirin 325 MG TAB PO SCH (09:45)
[2024-03-31] MEDS: MEMANTINE HCL 5 MG TAB PO SCH (09:45)
[2024-03-31 11:56] LABS: Base Excess -8.4 mmol/L (-2.0-3.0)
[2024-03-31] MEDS ORDERED: VASOPRESSIN 40 UNITS in D5W 5% 198 ML IV SCH (14:00)
[2024-03-31] MEDS: VASOPRESSIN 20 UNITS in SODIUM CHL 0.9% 99 ML IV SCH (15:28)
[2024-03-31] MEDS: ALBUMIN 25% 100 ML IV SCH (15:31)
[2024-03-31] MEDS: Glucerna 1.2 Cal 1Liter BOTTLE GT SCH (15:32)
[2024-04-01] VITALS (109 sets, daily range): BP systolic 67–154; BP diastolic 35–82; PULSE 69–102; RESP 9–19; TEMP 97.2–99.3; O2SAT 86–100
[2024-04-01 04:15] LABS: INR 1.13 (0.9-1.15); Partial Thromboplastin Time 38.4 SEC (24.5-34.5); Prothrombin Time 11.9 sec (9.3-11.8)
[2024-04-01 04:19] LABS: Alanine Aminotransferase 16 U/L (7-40); Albumin 3.9 g/dL (3.2-4.8); Alkaline Phosphatase 80 U/L (46-116); Anion Gap 7 (5-15); Aspartate Aminotransferase 14 U/L (13-40); BUN/Creatinine Ratio 8.8 (10.0-20.0); Bilirubin, Total 0.8 mg/dL (0.2-1.0); Blood Urea Nitrogen 12 mg/dL (9-23); Calcium 8.9 mg/dL (8.7-10.4); Carbon Dioxide 22 mmol/L (20-30); Chloride 110 mmol/L (98-107); Glucose 149 mg/dL (74-106); Sodium 139 mmol/L (136-145); Total Protein 5.8 g/dL (5.7-8.2)
[2024-04-01 04:56] LABS: Basophils # (auto) 0 10 ^3/uL (0-0.2); Eosinophils # (auto) 0.5 10 ^3/uL (0-0.8); Hemoglobin 7.8 g/dL (13.5-17.5); Lymphocytes # (auto) 1.5 10 ^3/uL (0.4-5.4); Monocytes # (auto) 0.5 10 ^3/uL (0-1.3); Monocytes % (auto) 7.6 % (0.0-12.0); Neutrophils # (auto) 3.9 10 ^3/uL (1.6-8.6)
[2024-04-01 04:58] LABS: Basophils % (auto) 0.5 % (0.0-2.0); Eosinophils % (auto) 7.9 % (0.0-7.0); Hematocrit 23.6 % (41.0-53.0); Lymphocytes % (auto) 23.4 % (10.0-50.0); Mean Corpuscular Hemoglobin 27.7 pg (28.0-32.0); Mean Corpuscular Volume 83.9 fL (80.0-100.0); Neutrophils % (auto) 60.6 % (37.0-80.0); Platelet Count (auto) 290 10^3/uL (140-450); Red Blood Cells 2.81 10^6/uL (4.5-5.90); Red Cell Distribution Width 17.5 % (11.8-14.3); White Blood Cell 6.4 10^3/uL (4.4-10.8)
[2024-04-01 07:34] LABS: Base Excess -7.4 mmol/L (-2.0-3.0)
[2024-04-01] MEDS: FUROSEMIDE 40 MG/4 ML VIAL IV ONE (20:20)
[2024-04-02] VITALS (95 sets, daily range): BP systolic 71–146; BP diastolic 49–85; PULSE 71–93; RESP 12–24; TEMP 96.4–99.1; O2SAT 91–100
[2024-04-02 04:17] LABS: Basophils # (auto) 0 10 ^3/uL (0-0.2); Basophils % (auto) 0.2 % (0.0-2.0); Eosinophils # (auto) 0.2 10 ^3/uL (0-0.8); Eosinophils % (auto) 4.4 % (0.0-7.0); Hemoglobin 7.8 g/dL (13.5-17.5); Lymphocytes # (auto) 0.8 10 ^3/uL (0.4-5.4); Mean Corpuscular Volume 82.4 fL (80.0-100.0); Monocytes # (auto) 0.3 10 ^3/uL (0-1.3)
[2024-04-02 04:20] LABS: Hematocrit 22.4 % (41.0-53.0); Lymphocytes % (auto) 18.3 % (10.0-50.0); Mean Corpuscular Hemoglobin 28.6 pg (28.0-32.0); Mean Corpuscular Hgb Conc. 34.8 g/dL (32.0-36.0); Monocytes % (auto) 6.1 % (0.0-12.0); Neutrophils # (auto) 3.3 10 ^3/uL (1.6-8.6); Platelet Count (auto) 259 10^3/uL (140-450); Red Blood Cells 2.72 10^6/uL (4.5-5.90); White Blood Cell 4.6 10^3/uL (4.4-10.8)
[2024-04-02 04:32] LABS: Alanine Aminotransferase 17 U/L (7-40); Albumin 3.8 g/dL (3.2-4.8); Alkaline Phosphatase 102 U/L (46-116); Anion Gap 6 (5-15); Aspartate Aminotransferase 15 U/L (13-40); BUN/Creatinine Ratio 8.1 (10.0-20.0); Bilirubin, Total 0.8 mg/dL (0.2-1.0); Blood Urea Nitrogen 10 mg/dL (9-23); Calcium 9.6 mg/dL (8.7-10.4); Carbon Dioxide 24 mmol/L (20-30); Chloride 107 mmol/L (98-107); Glucose 157 mg/dL (74-106); Magnesium 1.5 mg/dL (1.6-2.6); Potassium 3.8 mmol/L (3.5-5.1); Sodium 137 mmol/L (136-145)
[2024-04-02] MEDS: MIDODRINE HCL 10 MG TAB PO SCH (05:30)
[2024-04-02] MEDS: MAGNESIUM SULFATE 1GM/100ML 100 ML IV SCH (09:00)
[2024-04-02 12:00] LABS: Base Excess -5.8 mmol/L (-2.0-3.0)
[2024-04-02] MEDS ORDERED: MIDODRINE HCL 10 MG TAB PO SCH (18:00)
[2024-04-02] MEDS: FUROSEMIDE 40 MG/4 ML VIAL IV ONE (21:11)
[2024-04-02] MEDS: VANCOMYCIN 750mg/150ml 150 ML IV SCH (21:32)
[2024-04-03] VITALS (25 sets, daily range): BP systolic 92–144; BP diastolic 54–78; PULSE 73–108; RESP 13–35; TEMP 98.3–99.1; O2SAT 87–100
[2024-04-03 04:02] LABS: Basophils # (auto) 0 10 ^3/uL (0-0.2); Basophils % (auto) 0.1 % (0.0-2.0); Eosinophils # (auto) 0.2 10 ^3/uL (0-0.8); Eosinophils % (auto) 5.2 % (0.0-7.0); Hematocrit 24.9 % (41.0-53.0); Hemoglobin 8.5 g/dL (13.5-17.5); Lymphocytes % (auto) 24.6 % (10.0-50.0); Mean Corpuscular Hemoglobin 27.9 pg (28.0-32.0); Mean Corpuscular Hgb Conc. 34.3 g/dL (32.0-36.0); Mean Corpuscular Volume 81.5 fL (80.0-100.0); Monocytes # (auto) 0.3 10 ^3/uL (0-1.3); Monocytes % (auto) 6.9 % (0.0-12.0); Neutrophils # (auto) 2.7 10 ^3/uL (1.6-8.6); Neutrophils % (auto) 63.2 % (37.0-80.0); Platelet Count (auto) 303 10^3/uL (140-450); Red Blood Cells 3.06 10^6/uL (4.5-5.90); Red Cell Distribution Width 16.4 % (11.8-14.3); White Blood Cell 4.3 10^3/uL (4.4-10.8)
[2024-04-03 04:27] LABS: Alanine Aminotransferase 16 U/L (7-40); Albumin 4.1 g/dL (3.2-4.8); Alkaline Phosphatase 104 U/L (46-116); Anion Gap 8 (5-15); Aspartate Aminotransferase 20 U/L (13-40); BUN/Creatinine Ratio 7.1 (10.0-20.0); Blood Urea Nitrogen 8 mg/dL (9-23); Calcium 9.6 mg/dL (8.7-10.4); Carbon Dioxide 25 mmol/L (20-30); Chloride 108 mmol/L (98-107); Glucose 122 mg/dL (74-106); Magnesium 1.7 mg/dL (1.6-2.6); Potassium 3.2 mmol/L (3.5-5.1); Sodium 141 mmol/L (136-145)
[2024-04-03 04:28] LABS: Bilirubin, Total 0.6 mg/dL (0.2-1.0); Total Protein 6.4 g/dL (5.7-8.2)
[2024-04-03] MEDS: FUROSEMIDE 40 MG/4 ML VIAL IV SCH (09:45)
[2024-04-03] MEDS: POTASSIUM CHL 20MEQ/100ML 100 ML IV SCH (09:47)
[2024-04-03] MEDS: MAGNESIUM SULFATE 1GM/100ML 100 ML IV SCH (09:47)
[2024-04-04] VITALS (26 sets, daily range): BP systolic 101–131; BP diastolic 61–75; PULSE 85–108; RESP 16–34; TEMP 97.8–98.9; O2SAT 90–100
[2024-04-04 05:02] LABS: Basophils # (auto) 0 10 ^3/uL (0-0.2); Basophils % (auto) 0.1 % (0.0-2.0); Eosinophils # (auto) 0 10 ^3/uL (0-0.8); Eosinophils % (auto) 0.5 % (0.0-7.0); Hematocrit 31.2 % (41.0-53.0); Hemoglobin 10.4 g/dL (13.5-17.5); Lymphocytes # (auto) 1.5 10 ^3/uL (0.4-5.4); Lymphocytes % (auto) 16.5 % (10.0-50.0); Mean Corpuscular Hemoglobin 27.8 pg (28.0-32.0); Mean Corpuscular Hgb Conc. 33.3 g/dL (32.0-36.0); Mean Corpuscular Volume 83.3 fL (80.0-100.0); Monocytes # (auto) 0.6 10 ^3/uL (0-1.3); Monocytes % (auto) 6.7 % (0.0-12.0); Neutrophils # (auto) 6.9 10 ^3/uL (1.6-8.6); Neutrophils % (auto) 76.2 % (37.0-80.0); Platelet Count (auto) 394 10^3/uL (140-450); Red Blood Cells 3.74 10^6/uL (4.5-5.90); Red Cell Distribution Width 16.6 % (11.8-14.3); White Blood Cell 9.1 10^3/uL (4.4-10.8)
[2024-04-04 05:21] LABS: Alanine Aminotransferase 17 U/L (7-40); Albumin 4.4 g/dL (3.2-4.8); Alkaline Phosphatase 114 U/L (46-116); Anion Gap 9 (5-15); Aspartate Aminotransferase 17 U/L (13-40); BUN/Creatinine Ratio 11.9 (10.0-20.0); Bilirubin, Total 0.6 mg/dL (0.2-1.0); Blood Urea Nitrogen 15 mg/dL (9-23); Carbon Dioxide 25 mmol/L (20-30); Chloride 103 mmol/L (98-107); Magnesium 1.9 mg/dL (1.6-2.6); Potassium 3.3 mmol/L (3.5-5.1); Sodium 137 mmol/L (136-145); Total Protein 7.2 g/dL (5.7-8.2)
[2024-04-04 05:23] LABS: Glucose 229 mg/dL (74-106)
[2024-04-05] VITALS (26 sets, daily range): BP systolic 91–131; BP diastolic 49–76; PULSE 70–97; RESP 18–31; TEMP 98–99.3; O2SAT 95–100
[2024-04-05 05:05] LABS: Basophils # (auto) 0 10 ^3/uL (0-0.2); Basophils % (auto) 0.2 % (0.0-2.0); Eosinophils # (auto) 0.2 10 ^3/uL (0-0.8); Eosinophils % (auto) 2.7 % (0.0-7.0); Hematocrit 26.6 % (41.0-53.0); Hemoglobin 9.4 g/dL (13.5-17.5); Lymphocytes # (auto) 2.1 10 ^3/uL (0.4-5.4); Lymphocytes % (auto) 24.3 % (10.0-50.0); Mean Corpuscular Hemoglobin 28.2 pg (28.0-32.0); Mean Corpuscular Hgb Conc. 35.1 g/dL (32.0-36.0); Mean Corpuscular Volume 80.3 fL (80.0-100.0); Monocytes # (auto) 0.5 10 ^3/uL (0-1.3); Monocytes % (auto) 6.3 % (0.0-12.0); Neutrophils # (auto) 5.8 10 ^3/uL (1.6-8.6); Neutrophils % (auto) 66.5 % (37.0-80.0); Platelet Count (auto) 371 10^3/uL (140-450); Red Blood Cells 3.31 10^6/uL (4.5-5.90); Red Cell Distribution Width 16.7 % (11.8-14.3); White Blood Cell 8.8 10^3/uL (4.4-10.8)
[2024-04-05 05:19] LABS: Chloride 102 mmol/L (98-107); Potassium 2.9 mmol/L (3.5-5.1); Sodium 137 mmol/L (136-145)
[2024-04-05 05:20] LABS: Anion Gap 8 (5-15); Calcium 9.8 mg/dL (8.7-10.4); Carbon Dioxide 27 mmol/L (20-30)
[2024-04-05 05:25] LABS: BUN/Creatinine Ratio 19.2 (10.0-20.0); Blood Urea Nitrogen 24 mg/dL (9-23)
[2024-04-05 05:28] LABS: Glucose 129 mg/dL (74-106)
[2024-04-05] MEDS: POTASSIUM CHL 20MEQ/100ML 100 ML IV SCH (08:21)
[2024-04-06] VITALS (10 sets, daily range): BP systolic 98–126; BP diastolic 62–76; PULSE 73–93; RESP 16–25; TEMP 98–99.4; O2SAT 92–99
[2024-04-06 06:46] LABS: Anion Gap 11 (5-15); Carbon Dioxide 19 mmol/L (20-30); Chloride 104 mmol/L (98-107); Sodium 134 mmol/L (136-145)
[2024-04-06 06:48] LABS: Calcium 9.4 mg/dL (8.7-10.4)
[2024-04-06 06:52] LABS: BUN/Creatinine Ratio 19.8 (10.0-20.0); Blood Urea Nitrogen 22 mg/dL (9-23); Glucose 172 mg/dL (74-106)
[2024-04-06] MEDS: VANCOMYCIN 750mg/150ml 150 ML IV ONE ×2 (16:45→20:09)
[2024-04-06] MEDS: FUROSEMIDE 20 MG/2 ML VIAL IV SCH (18:00)
[2024-04-06] MEDS: ENOXAPARIN SOD 60 MG/0.6 ML SYRINGE SC SCH (22:34)
[2024-04-07] VITALS (9 sets, daily range): BP systolic 108–124; BP diastolic 62–68; PULSE 62–84; RESP 17–20; TEMP 97.4–98; O2SAT 95–99
[2024-04-07 07:15] LABS: Calcium 10.1 mg/dL (8.7-10.4); Chloride 105 mmol/L (98-107); Potassium 3.2 mmol/L (3.5-5.1); Sodium 138 mmol/L (136-145)
[2024-04-07 07:16] LABS: Anion Gap 10 (5-15); Carbon Dioxide 23 mmol/L (20-30)
[2024-04-07 07:21] LABS: BUN/Creatinine Ratio 20.2 (10.0-20.0); Blood Urea Nitrogen 24 mg/dL (9-23)
[2024-04-07 07:24] LABS: Glucose 58 mg/dL (74-106)
== END 2024-04-07 16:45 | disposition hospice, home (50) | DRG 871 ==
LOC: ER 19:14 → EDUNIT# 19:14 → EDBD 19:14 → TELE 03-30 03:08 → ICU WEST 03-30 03:59 → DOU IN ICU 04-03 19:00 → TELE-EAST 04-06 02:26
PROVIDERS: ADMIT Nurse Practitioner; ATTEND Internal Medicine Nephrology
PROC: 0BH17EZ Insertion of Endotracheal Airway into Trachea, Via Natural or Artificial Opening (ICD-10-PCS; principal; 2024-03-29)
PROC: 5A1945Z Respiratory Ventilation, 24-96 Consecutive Hours (ICD-10-PCS; 2024-03-29)
PROC: 06HY33Z Insertion of Infusion Device into Lower Vein, Percutaneous Approach (ICD-10-PCS; 2024-03-29)
PROC: B54BZZA Ultrasonography of Right Lower Extremity Veins, Guidance (ICD-10-PCS; 2024-03-29)
DX: A41.9 Sepsis, unspecified organism (principal); J18.9 Pneumonia, unspecified organism; J96.01 Acute respiratory failure with hypoxia; I10 Essential (primary) hypertension; Z20.822 Contact with and (suspected) exposure to COVID-19; Z51.5 Encounter for palliative care; J45.909 Unspecified asthma, uncomplicated; E11.9 Type 2 diabetes mellitus without complications; E78.5 Hyperlipidemia, unspecified; I25.10 Atherosclerotic heart disease of native coronary artery without angina pectoris; I35.8 Other nonrheumatic aortic valve disorders; Z79.82 Long term (current) use of aspirin; Z79.899 Other long term (current) drug therapy; I25.2 Old myocardial infarction; Z79.4 Long term (current) use of insulin
CPT/HCPCS: 31500; 36415; 36556; 36600; 70450; 71045; 71275; 74176; 76942; 80048; 80053; 80202; 81001; 82805; 82962; 83605; 83735; 83880; 84484; 85025; 85379; 85610; 85730; 87040; 87070; 87081; 87205; 87426; 92610; 93306; 94002; 94003; 94640; 97110; 97163; 97530; 99152; 99291; G0378; J1815; J2470; J2543; J2704; J3480; J3490; J7060; P9047